=== PATIENT | female | born 1980 | race Caucasian/White ===

== ENCOUNTER → 2019-10-11 13:08 | Outpatient (BNVA) | payer MEDICAID, SELFPAY | PROVIDERS: Family Provider Nurse Practitioner Family; PCP Nurse Practitioner Family; Visit Provider Anesthesiology | DX: G89.29 Other chronic pain (principal); M54.9 Dorsalgia, unspecified; M79.604 Pain in right leg; M79.605 Pain in left leg; M79.671 Pain in right foot; M79.672 Pain in left foot; Z79.891 Long term (current) use of opiate analgesic | CPT/HCPCS: 99214 ==

== ENCOUNTER → 2019-12-06 13:15 | Outpatient (BNVA) | payer MEDICAID, SELFPAY | PROVIDERS: Family Provider Nurse Practitioner Family; PCP Nurse Practitioner Family; Visit Provider Anesthesiology | DX: G89.29 Other chronic pain (principal); M54.9 Dorsalgia, unspecified; M79.651 Pain in right thigh; M79.652 Pain in left thigh; M79.604 Pain in right leg; M79.605 Pain in left leg; M79.671 Pain in right foot; M79.672 Pain in left foot; M25.519 Pain in unspecified shoulder; Z79.891 Long term (current) use of opiate analgesic | CPT/HCPCS: 99214 ==

== ENCOUNTER → 2019-12-31 12:30 | Outpatient (BNVA) | payer MEDICAID, SELFPAY | PROVIDERS: Family Provider Nurse Practitioner Family; PCP Nurse Practitioner Family; Visit Provider Anesthesiology Pain Medicine | DX: M79.604 Pain in right leg (principal); M79.605 Pain in left leg; G90.529 Complex regional pain syndrome I of unspecified lower limb; M54.9 Dorsalgia, unspecified | CPT/HCPCS: 64520; J1100; J2001; J3490 ==

== ENCOUNTER → 2020-02-12 10:00 | Outpatient (BNVA) | payer MEDICAID, SELFPAY | PROVIDERS: Family Provider Nurse Practitioner Family; PCP Nurse Practitioner Family; Visit Provider Family Medicine | DX: N18.9 Chronic kidney disease, unspecified (principal) | CPT/HCPCS: 80069; 82044; 82310; 83970; 85025 ==

== ENCOUNTER → 2020-03-04 12:19 | Outpatient (BNVA) | payer MEDICAID, SELFPAY | PROVIDERS: Family Provider Nurse Practitioner Family; PCP Nurse Practitioner Family; Visit Provider Urology | DX: N20.2 Calculus of kidney with calculus of ureter (principal) | CPT/HCPCS: 80048; 84100; 84550 ==

== ENCOUNTER → 2020-03-19 12:58 | Outpatient (BNVA) | payer MEDICAID, SELFPAY | PROVIDERS: Family Provider Nurse Practitioner Family; PCP Nurse Practitioner Family; Visit Provider Anesthesiology | DX: G89.29 Other chronic pain (principal); M79.671 Pain in right foot; M79.672 Pain in left foot; M54.9 Dorsalgia, unspecified; Z79.891 Long term (current) use of opiate analgesic | CPT/HCPCS: 99214 ==

== ENCOUNTER → 2020-03-23 09:00 | Outpatient (BNVA) | payer MEDICAID, SELFPAY | PROVIDERS: Family Provider Nurse Practitioner Family; PCP Nurse Practitioner Family; Visit Provider Nurse Practitioner Family | DX: Z30.9 Encounter for contraceptive management, unspecified (principal); E03.9 Hypothyroidism, unspecified; Z30.42 Encounter for surveillance of injectable contraceptive; Z68.35 Body mass index [BMI] 35.0-35.9, adult | CPT/HCPCS: 84439; 84443 ==

== ENCOUNTER 2020-04-01 10:54 | Outpatient (CLI) | payer MEDICAID, SELFPAY ==
--- NOTE | 2020-04-01 10:15 | XRR_ITS ---
PROCEDURE INFORMATION: Exam: XR Abdomen, 1 View Exam date and time: 04/01/2020 10:57 AM Age: 39 years old Clinical indication: Condition or disease; Kidney or ureter condition; Calculus (stone) in kidney; Prior surgery; Surgery type: Kidney stone removal TECHNIQUE: Imaging protocol: XR of the abdomen. Views: Frontal supine view of the abdomen. 1 View. COMPARISON: No relevant prior studies available. FINDINGS: Gastrointestinal tract: There is increased retained stool throughout the colon, compatible with constipation. Kidneys are obscured by overlying stool and bowel gas. Organs: No calculi project over the expected location of either kidney or along the course of either ureter. Bones/joints: Unremarkable. XR/XR KUB [id number] IMPRESSION: No radiopaque calculi identified.
== END 2020-04-01 10:55 | disposition home or self-care (01) ==
PROVIDERS: Family Provider Nurse Practitioner Family; PCP Nurse Practitioner Family; Visit Provider Urology
DX: N20.2 Calculus of kidney with calculus of ureter (principal)
CPT/HCPCS: 74018; 81001

== ENCOUNTER → 2020-05-21 13:43 | Outpatient (BNVA) | payer MEDICAID, SELFPAY | PROVIDERS: Family Provider Nurse Practitioner Family; PCP Nurse Practitioner Family; Visit Provider Anesthesiology | DX: G89.29 Other chronic pain (principal); M79.671 Pain in right foot; M79.672 Pain in left foot; M54.9 Dorsalgia, unspecified; Z79.891 Long term (current) use of opiate analgesic | CPT/HCPCS: 99214 ==

== ENCOUNTER → 2020-06-24 10:43 | Outpatient (BNVA) | payer MEDICAID, SELFPAY | PROVIDERS: Family Provider Nurse Practitioner Family; PCP Nurse Practitioner Family; Visit Provider Nurse Practitioner Family | DX: R35.0 Frequency of micturition (principal) | CPT/HCPCS: 81000 ==

== ENCOUNTER 2020-06-26 15:27 | Observation (INO) | payer MEDICAID, SELFPAY ==
[2020-06-26] VITALS (12 sets, daily range): BP systolic 104–136; BP diastolic 64–102; PULSE 66–111; RESP 12–22; TEMP 37; O2SAT 72–100; BMI 48.9
--- NOTE | 2020-06-26 16:13 | XRR_ITS ---
PROCEDURE INFORMATION: Exam: XR Chest, 1 View Exam date and time: 06/26/2020 5:24 PM Age: 39 years old Clinical indication: Other: Altered mental status; Patient HX: AMS TECHNIQUE: Imaging protocol: XR of the chest Views: 1 view. COMPARISON: CR Chest 1 [place] [id number] 12/22/2018 9:03 PM FINDINGS: Lungs: Poor inspiratory effort. No visible active interstitial or alveolar airspace disease. Pleural space: Unremarkable. No pleural effusion. No pneumothorax. Heart/Mediastinum: Unremarkable. No cardiomegaly. Bones/joints: Unremarkable. Other findings: Heavy body habitus. XR/XR chest 1V portable [id number] IMPRESSION: Poor inspiratory effort.
--- NOTE | 2020-06-26 16:13 | ECG_ITS ---
[facility] Test Date: 2020-06-26 Pat Name: Silvia Resendez Department: Room: Gender: Female [employer] Agent: : 1980 Requested By: Layla Abarca Order Number: [id number] Josie MD: Lucía Abernathy M.D. Measurements Intervals Center Line Rate: 66 P: 13 MT: 146 QRS: 1 QRSD: 87 T: 17 QT: 398 QTc: 419 Interpretive Statements SINUS RHYTHM POSSIBLE ANTERIOR MYOCARDIAL INFARCTION , PROBABLY OLD [30 ms Q WAVE IN V3/V4, OR R < 0.2 mV IN V4] Compared to ECG 09/26/2017 15:25:15 Myocardial infarct finding now present Prolonged QT interval no longer present Electronically Signed On 06-27-2020 8:15:43 CDT by Lucía Abernathy M.D. [id number]
--- NOTE | 2020-06-26 16:13 | CTR_ITS ---
PROCEDURE INFORMATION: Exam: CT Head Without Contrast Exam date and time: 06/26/2020 5:01 PM Age: 39 years old Clinical indication: Altered mental status/memory loss; Confusion or disorientation; Patient HX: AMS, high bs accidental overmedication TECHNIQUE: Imaging protocol: Computed tomography of the head without contrast. Radiation optimization: All CT scans at this facility use at least one of these dose optimization techniques: automated exposure control; mA and/or kV adjustment per patient size (includes targeted exams where dose is matched to clinical indication); or iterative reconstruction. COMPARISON: No relevant prior studies available. RADIATION DOSE METRICS: Total DLP (mGy-cm): 762.65 FINDINGS: Brain: Normal. No hemorrhage. Unremarkable white matter. No mass effect. Ventricles: No ventriculomegaly. Bones/joints: Unremarkable. No acute fracture. Paranasal sinuses: Visualized sinuses are unremarkable. No fluid levels. Mastoid air cells: Visualized mastoid air cells are well aerated. Soft tissues: Unremarkable. CT/CT head wo con* [id number] IMPRESSION: No acute intracranial abnormality. Radiation Dose CTDIVOL = (mGy): DLP = 762.65 (mGy-cm)
--- NOTE | 2020-06-26 16:15 | ED_ITS ---
HPI - General Adult General: Chief complaint: Recheck/Abnormal Lab/Rx Stated complaint: HIGH BLOOD SUGAR Time Seen by Provider: 06/26/20 16:12 Source: patient Mode of arrival: ambulatory Limitations: no limitations History of Present Illness: HPI narrative: Silvia is a 39-year-old female who comes in with high blood sugar. Patient is somnolent but states that she accidentally took her Ambien along with her methadone this morning. Her methadone was a scheduled but her Ambien of course is not. Patient has a GCS of 14 she will easily awakes from sleeping to voice. Patient has chronic pain in her lower extremities from previous vascular injury. Patient was seen at her primary care yesterday for control and was noted to have high blood sugar. She went back today and because of the somnolence and that again elevated blood sugar she was sent into the ER for evaluation. Patient states that she otherwise feels well and denies any other problems. Associated symptoms: Deny chest pain, confusion, diaphoresis, dyspnea, headache(s), malaise, nausea, rash, palpitations, syncope or vomiting Review of Systems Const: Denies: fever(s), chills, body aches, fatigue, malaise or diaphoresis Eyes: Denies: change in vision, blurry vision, photophobia, eye discomfort, eye discharge, eye redness or yellow eyes ENMT: Denies: throat pain, odynophagia, hoarseness, swelling of lips/tongue, ear or mastoid pain, ear discharge, change in hearing or nasal discharge Card: Denies: chest pain, palpitations, irregular heart rhythm, edema, lightheadedness, syncope, pre-syncope, dyspnea on exertion or orthopnea Resp: Denies: dyspnea, productive cough, non-productive cough, wheezing, hemoptysis or chest congestion GI: Denies: abdominal pain, nausea, vomiting, hematemesis, coffee ground emesis, heartburn, diarrhea, constipation, GI cramping, hematochezia or melena : Denies: flank pain, dysuria, urinary frequency, urinary urgency or hematuria Musc: Denies: neck pain, back pain, extremity pain, extremity swelling, joint pain, joint swelling, joint redness, joint warmth or joint stiffness Skin/Breast: Denies: rash, pruritus, erythema, skin pain or skin tenderness Neuro: Denies: headache(s), numbness in extremities, weakness in extremities, sensory changes, lack of coordination, difficulty walking, dizziness, vertigo, confusion, Slurred speech present or seizure-like activity Tray/Lymph: Denies: easy bruising, easy bleeding, petechiae, purpura or enlarged lymph nodes All/Imm: Denies: urticaria, throat swelling, tongue swelling, facial swelling or acute wheezing PFSH ED PFSH: Medical History Acc cut/hem w/ scope exam right knee in 2005 Anxiety disorder Back pain with history of spinal surgery injections 04/2018 Chronic pain Depression Drug-seeking behavior Encounter for long-term use of opiate analgesic Foot pain, bilateral Headache Hypocitraturia Hypothyroidism Leg pain, bilateral Muscle spasm Opioid dependence Overdose of analgesic Polysubstance abuse Shoulder pain Urolithiasis Surgical History History of elbow surgery right History of oral surgery 2016: October 2016 S/p bilateral carpal tunnel release right 2000 S/P foot surgery Bilateral: right great toe, part of second toe on the left foot removed. Status post laser lithotripsy of ureteral calculus Family History Father Cancer Hypertension Diabetes Social History Smoking and tobacco status: never smoked Second hand smoke exposure: No Alcohol intake: never Adopted: No Caregiver/support person: No Lives independently: Yes History of recent travel: No Physical Exam Const: COMMON NORMALS: no acute distress, patient oriented x3, no limitations and alert GENERAL APPEARANCE: cooperative HENMT: COMMON NORMALS: normocephalic, atraumatic, external ears normal, EAC's normal and Normal external nose present HEAD & SCALP: normal to inspection, normocephalic and atraumatic FACE & SINUS: normal facial exam and face symmetric NOSE: Normal external nose present and Normal nares present EXTERNAL EAR: Yes external ears normal EXTERNAL AUDITORY CANAL: EAC's normal MOUTH: Normal oral and palatal mucosa present, lip normal and tongue normal Eye: COMMON NORMALS: Equal, round and reactive pupils present and conjunctivae normal GENERAL EYE: appearance normal, both eyes and all related structures ALIGNMENT: Yes alignment normal PERIORBITAL: periorbital findings normal EYELID: eyelids normal CONJUNCTIVA: Yes conjunctivae normal SCLERA: sclerae normal PUPIL: Yes Equal, round and reactive pupils present Neck/C-Spine: COMMON NORMALS: full ROM, no lymphadenopathy, supple, no meningeal signs and no JVD GENERAL: Yes normal visual inspection and Yes trachea midline Chest: COMMONS NORMALS: normal inspection of the chest and normal palpation of entire chest wall Resp: COMMON NORMALS: normal respiratory effort, No retractions, No use of accessory muscles and clear to auscultation bilaterally EFFORT & INSPECTION: Yes able to speak in complete sentences and Yes symmetric chest movement AUSCULTATION: clear to auscultation bilaterally, no crackles, no rales, no rhonchi and no wheezes Cardio: COMMON NORMALS: no JVD, regular rate, regular rhythm, S1 normal heart sound present and S2 normal heart sound present RATE: regular rate RHYTHM: regular rhythm HEART SOUNDS: S1 normal heart sound present, S2 normal heart sound present, no click, no gallops, no murmurs and no rubs GI: COMMON NORMALS: Soft to palpation and No hepatosplenomegaly present PALPATION: Yes Soft to palpation, No Tenderness to palpation present (GI), No Guarding due to palpation present (GI), No Rigid due to palpation, Yes No hepatosplenomegaly present, No Hernia present, No Palpable mass present and No Pulsatile mass present : COMMON NORMALS: Yes no CVA tenderness BLADDER/KIDNEY EXAM: Yes no CVA tenderness EXTERNAL FEMALE EXAM: No Hernia present Back/Pelvis: COMMON NORMALS: no CVA tenderness, thoracic and lumbar spine normal to inspection, no thoracic nor lumbar tenderness and thoraco-lumbar ROM normal Extremity: COMMON NORMALS: normal to inspection, full ROM, capillary refill normal, no joint enlargement, no clubbing, cyanosis or edema and no calf tenderness Neuro: COMMON NORMALS: patient oriented x3, CN's II-XII intact bilaterally, moves all extremities, no focal motor deficits and no sensory deficits noted SENSORIUM/ORIENTATION: Yes alert MENINGEAL SIGNS: Yes no meningeal signs SPEECH: speech normal Psych: COMMON NORMALS: mental status grossly normal, Normal thought process present, cooperative, normal affect, speech normal and activity/motor behavior normal SPEECH: Yes normal speech THOUGHT PROCESS: Normal thought process present Skin: COMMON NORMALS: no rashes or lesions noted, turgor normal, no jaundice, no petechiae and no mottling GENERAL SKIN EXAM: no rashes or lesions noted and turgor normal Course ED course: 1733 -patient was given Narcan due to increased somnolence with great improvement after Narcan was administered. Vital Signs: Vital signs: Vital Signs Temperature 98.6 F 06/26/20 16:22 Pulse Rate 81 06/26/20 19:46 Respiratory Rate 15 06/26/20 19:46 Blood Pressure 136/84 06/26/20 19:46 Pulse Oximetry 95 06/26/20 19:46 MDM - General Adult MDM Narrative: Medical decision making narrative: Ms. Resendez is a 39-year-old female who comes in from her clinic with an altered mental status and high blood sugar. The diagnosis of diabetes is new. I see no evidence of diabetic ketoacidosis. Patient claims that she accidentally took her Ambien this morning. And one-point she necessitated a dose of Narcan because nursing was concerned that she was oversedated. She did have significant improvement in her symptoms but it did wear off but the patient has maintained a good GCS of 15 since that time. She is on multiple medications that will sedate her and I believe she is at risk should she go home as multiple medications are very long- acting. The patient at this time is stable but because of this I believe she needs to be monitored. The case was reviewed with Dr. Vasquez he is agreeable to admission for further evaluation and care. Lab Data: Labs: Lab Results 06/26/20 06/26/20 06/26/20 Range/Units 15:43 16:45 16:45 WBC (4.0-10.0) 10^3/ uL RBC (4.1-5.3) 10^6/u L Hgb (11.5-15.3) g/dL Hct (37.0-47.0) % MCV (81-99) fL MCH (28.0-34.0) pg MCHC (30.0-36.0) g/dL RDW (12.1-15.1) % Plt Count (130-400) 10^3/c mm MPV (7.4-10.4) fL Neut % (Auto) % Lymph % (Auto) % Wirt % (Auto) % Eos % (Auto) % Baso % (Auto) % Neut # (Auto) (1.8-7.7) 10^3/u L Lymph # (Auto) (0.8-4.8) 10^3/u L Wirt # (Auto) (0.2-0.9) 10^3/u L Eos # (Auto) (0.0-0.8) 10^3/u L Baso # (Auto) (0.0-0.1) 10^3/u L Nucleated RBC % (a uto) % Nucleated RBCs # /100WBC Specimen Type Sample Site ABG pH (7.35-7.45) ABG pCO2 (35-45) mmHg ABG pO2 (80.0-100.0) mmH g ABG HCO3 (22-26) mmol/L ABG Base Excess (-2.0-2.0) mmol/ L Jaden Test Hematocrit (37-47) % O2 Delivery Device FiO2 % [employer] ID Sodium (136-145) mmol/L Potassium (3.5-5.1) mmol/L Chloride (98-107) mmol/L Carbon Dioxide (22-29) mmol/L Anion Gap (5-19) BUN (6-20) mg/dL Creatinine (0.5-0.9) mg/dL GFR Calculation (90-130) mL/min Glucose (65-115) mg/dL POC Glucose (70-110) mg/dL Calculated Osmolal ity (285-295) mOsm/k g Lactic Acid (0.5-2.2) mmol/L Calcium (8.5-10.5) mg/dL Magnesium (1.7-2.3) mg/dL Total Bilirubin (0.15-1.2) mg/dL AST (0-32) U/L ALT (0-33) U/L Alkaline Phosphata se (35-105) IU/L Ammonia (11-51) umol/L Creatine Kinase (26-192) U/L Troponin T Baselin e (0-10) ng/L Troponin T 120 Min [place] (0-10) ng/L Delta Troponin T (0-10) ABS# NT-Pro-B Natriuret Pep (0-125) pg/mL Total Protein (6.6-8.7) g/dL Albumin (3.5-5.2) g/dL Globulin (1.3-4.6) g/dL Urine Color Straw (Yellow) Urine Appearance Clear (CLEAR) Urine pH 7 (5-7) Ur Specific Gravit y 1.005 (1.005-1.030) Urine Protein Neg (Negative) Urine Glucose (UA) 4+ H (Normal) Urine Ketones Negative (Negative) Urine Blood Neg (Negative) Urine Nitrate Negative (Negative) Urine Bilirubin Neg (Negative) Urine Urobilinogen Norm (Negative) mg/dL Ur Leukocyte Mary Ellen ase Negative (Negative) Urine RBC 5-10 H (0-2) /hpf Urine WBC None (0-5) /hpf Ur Squamous Epith Cells 0-4 H (0-5) /hpf Amorphous Sediment Not Reportable Urine Bacteria Trace (NONE) /hpf Urine Opiates Scre en Positive H (Negative) ng/mL Acetaminophen < 5.0 L (10-30) ug/mL Ur Barbiturates Sc reen Negative (Negative) ng/mL Ur Phencyclidine S crn Negative (Negative) ng/mL Ur Amphetamines Sc reen Negative (Negative) ng/mL U Benzodiazepines Scrn Negative (Negative) ng/mL Urine Cocaine Scre en Negative (Negative) ng/mL U Marijuana (THC) Screen Negative (Negative) ng/mL Ethyl Alcohol (0-10) mg/dL Serum Ketones (Negative) 06/26/20 06/26/20 06/26/20 Range/Units 16:46 17:23 17:23 WBC 7.7 (4.0-10.0) 10^3/ uL RBC 4.52 (4.1-5.3) 10^6/u L Hgb 11.8 (11.5-15.3) g/dL Hct 37.2 (37.0-47.0) % MCV 82.3 (81-99) fL MCH 26.1 L (28.0-34.0) pg MCHC 31.7 (30.0-36.0) g/dL RDW 14.3 (12.1-15.1) % Plt Count 221 (130-400) 10^3/c mm MPV 9.7 (7.4-10.4) fL Neut % (Auto) 52.3 % Lymph % (Auto) 40.9 % Wirt % (Auto) 4.2 % Eos % (Auto) 1.8 % Baso % (Auto) 0.5 % Neut # (Auto) 4.00 (1.8-7.7) 10^3/u L Lymph # (Auto) 3.1 (0.8-4.8) 10^3/u L Wirt # (Auto) 0.3 (0.2-0.9) 10^3/u L Eos # (Auto) 0.1 (0.0-0.8) 10^3/u L Baso # (Auto) 0.0 (0.0-0.1) 10^3/u L Nucleated RBC % (a uto) 0 % Nucleated RBCs # 0.0 /100WBC Specimen Type Arterial Sample Site Radial, left ABG pH 7.33 L (7.35-7.45) ABG pCO2 43.2 (35-45) mmHg ABG pO2 64.3 L (80.0-100.0) mmH g ABG HCO3 23.0 (22-26) mmol/L ABG Base Excess -2.9 L (-2.0-2.0) mmol/ L Jaden Test Pos Hematocrit 39.5 (37-47) % O2 Delivery Device None FiO2 21.0 % [employer] ID Ed Sodium 131 L (136-145) mmol/L Potassium 4.1 (3.5-5.1) mmol/L Chloride 98 (98-107) mmol/L Carbon Dioxide 21 L (22-29) mmol/L Anion Gap 16.1 (5-19) BUN 9 (6-20) mg/dL Creatinine 1.3 H (0.5-0.9) mg/dL GFR Calculation 45.8 L (90-130) mL/min Glucose 466 H (65-115) mg/dL POC Glucose (70-110) mg/dL Calculated Osmolal ity 291 (285-295) mOsm/k g Lactic Acid (0.5-2.2) mmol/L Calcium 9.2 (8.5-10.5) mg/dL Magnesium 1.9 (1.7-2.3) mg/dL Total Bilirubin 0.4 (0.15-1.2) mg/dL AST 15 (0-32) U/L ALT 22 (0-33) U/L Alkaline Phosphata se 152 H (35-105) IU/L Ammonia (11-51) umol/L Creatine Kinase 284 H (26-192) U/L Troponin T Baselin e (0-10) ng/L Troponin T 120 Min [place]sparks (0-10) ng/L Delta Troponin T (0-10) ABS# NT-Pro-B Natriuret Pep (0-125) pg/mL Total Protein 6.9 (6.6-8.7) g/dL Albumin 4.0 (3.5-5.2) g/dL Globulin 2.9 (1.3-4.6) g/dL Urine Color (Yellow) Urine Appearance (CLEAR) Urine pH (5-7) Ur Specific Gravit y (1.005-1.030) Urine Protein (Negative) Urine Glucose (UA) (Normal) Urine Ketones (Negative) Urine Blood (Negative) Urine Nitrate (Negative) Urine Bilirubin (Negative) Urine Urobilinogen (Negative) mg/dL Ur Leukocyte Mary Ellen ase (Negative) Urine RBC (0-2) /hpf Urine WBC (0-5) /hpf Ur Squamous Epith Cells (0-5) /hpf Amorphous Sediment Urine Bacteria (NONE) /hpf Urine Opiates Scre en (Negative) ng/mL Acetaminophen (10-30) ug/mL Ur Barbiturates Sc reen (Negative) ng/mL Ur Phencyclidine S crn (Negative) ng/mL Ur Amphetamines Sc reen (Negative) ng/mL U Benzodiazepines Scrn (Negative) ng/mL Urine Cocaine Scre en (Negative) ng/mL U Marijuana (THC) Screen (Negative) ng/mL Ethyl Alcohol < 10 (0-10) mg/dL Serum Ketones Negative (Negative) 06/26/20 06/26/20 06/26/20 Range/Units 17:23 17:23 17:23 WBC (4.0-10.0) 10^3/ uL RBC (4.1-5.3) 10^6/u L Hgb (11.5-15.3) g/dL Hct (37.0-47.0) % MCV (81-99) fL MCH (28.0-34.0) pg MCHC (30.0-36.0) g/dL RDW (12.1-15.1) % Plt Count (130-400) 10^3/c mm MPV (7.4-10.4) fL Neut % (Auto) % Lymph % (Auto) % Wirt % (Auto) % Eos % (Auto) % Baso % (Auto) % Neut # (Auto) (1.8-7.7) 10^3/u L Lymph # (Auto) (0.8-4.8) 10^3/u L Wirt # (Auto) (0.2-0.9) 10^3/u L Eos # (Auto) (0.0-0.8) 10^3/u L Baso # (Auto) (0.0-0.1) 10^3/u L Nucleated RBC % (a uto) % Nucleated RBCs # /100WBC Specimen Type Sample Site ABG pH (7.35-7.45) ABG pCO2 (35-45) mmHg ABG pO2 (80.0-100.0) mmH g ABG HCO3 (22-26) mmol/L ABG Base Excess (-2.0-2.0) mmol/ L Jaden Test Hematocrit (37-47) % O2 Delivery Device FiO2 % [employer] ID Sodium (136-145) mmol/L Potassium (3.5-5.1) mmol/L Chloride (98-107) mmol/L Carbon Dioxide (22-29) mmol/L Anion Gap (5-19) BUN (6-20) mg/dL Creatinine (0.5-0.9) mg/dL GFR Calculation (90-130) mL/min Glucose (65-115) mg/dL POC Glucose (70-110) mg/dL Calculated Osmolal ity (285-295) mOsm/k g Lactic Acid 1.6 (0.5-2.2) mmol/L Calcium (8.5-10.5) mg/dL Magnesium (1.7-2.3) mg/dL Total Bilirubin (0.15-1.2) mg/dL AST (0-32) U/L ALT (0-33) U/L Alkaline Phosphata se (35-105) IU/L Ammonia 26 (11-51) umol/L Creatine Kinase (26-192) U/L Troponin T Baselin e 15 H (0-10) ng/L Troponin T 120 Min [place] (0-10) ng/L Delta Troponin T (0-10) ABS# NT-Pro-B Natriuret Pep (0-125) pg/mL Total Protein (6.6-8.7) g/dL Albumin (3.5-5.2) g/dL Globulin (1.3-4.6) g/dL Urine Color (Yellow) Urine Appearance (CLEAR) Urine pH (5-7) Ur Specific Gravit y (1.005-1.030) Urine Protein (Negative) Urine Glucose (UA) (Normal) Urine Ketones (Negative) Urine Blood (Negative) Urine Nitrate (Negative) Urine Bilirubin (Negative) Urine Urobilinogen (Negative) mg/dL Ur Leukocyte Mary Ellen ase (Negative) Urine RBC (0-2) /hpf Urine WBC (0-5) /hpf Ur Squamous Epith Cells (0-5) /hpf Amorphous Sediment Urine Bacteria (NONE) /hpf Urine Opiates Scre en (Negative) ng/mL Acetaminophen (10-30) ug/mL Ur Barbiturates Sc reen (Negative) ng/mL Ur Phencyclidine S crn (Negative) ng/mL Ur Amphetamines Sc reen (Negative) ng/mL U Benzodiazepines Scrn (Negative) ng/mL Urine Cocaine Scre en (Negative) ng/mL U Marijuana (THC) Screen (Negative) ng/mL Ethyl Alcohol (0-10) mg/dL Serum Ketones (Negative) 06/26/20 06/26/20 06/26/20 Range/Units 17:53 18:59 19:20 WBC (4.0-10.0) 10^3/ uL RBC (4.1-5.3) 10^6/u L Hgb (11.5-15.3) g/dL Hct (37.0-47.0) % MCV (81-99) fL MCH (28.0-34.0) pg MCHC (30.0-36.0) g/dL RDW (12.1-15.1) % Plt Count (130-400) 10^3/c mm MPV (7.4-10.4) fL Neut % (Auto) % Lymph % (Auto) % Wirt % (Auto) % Eos % (Auto) % Baso % (Auto) % Neut # (Auto) (1.8-7.7) 10^3/u L Lymph # (Auto) (0.8-4.8) 10^3/u L Wirt # (Auto) (0.2-0.9) 10^3/u L Eos # (Auto) (0.0-0.8) 10^3/u L Baso # (Auto) (0.0-0.1) 10^3/u L Nucleated RBC % (a uto) % Nucleated RBCs # /100WBC Specimen Type Sample Site ABG pH (7.35-7.45) ABG pCO2 (35-45) mmHg ABG pO2 (80.0-100.0) mmH g ABG HCO3 (22-26) mmol/L ABG Base Excess (-2.0-2.0) mmol/ L Jaden Test Hematocrit (37-47) % O2 Delivery Device FiO2 % [employer] ID Sodium (136-145) mmol/L Potassium (3.5-5.1) mmol/L Chloride (98-107) mmol/L Carbon Dioxide (22-29) mmol/L Anion Gap (5-19) BUN (6-20) mg/dL Creatinine (0.5-0.9) mg/dL GFR Calculation (90-130) mL/min Glucose (65-115) mg/dL POC Glucose 379 (70-110) mg/dL Calculated Osmolal ity (285-295) mOsm/k g Lactic Acid (0.5-2.2) mmol/L Calcium (8.5-10.5) mg/dL Magnesium (1.7-2.3) mg/dL Total Bilirubin (0.15-1.2) mg/dL AST (0-32) U/L ALT (0-33) U/L Alkaline Phosphata se (35-105) IU/L Ammonia (11-51) umol/L Creatine Kinase (26-192) U/L Troponin T Baselin e (0-10) ng/L Troponin T 120 Min [place] 16.23 H (0-10) ng/L Delta Troponin T 1.23 (0-10) ABS# NT-Pro-B Natriuret Pep 175 H (0-125) pg/mL Total Protein (6.6-8.7) g/dL Albumin (3.5-5.2) g/dL Globulin (1.3-4.6) g/dL Urine Color (Yellow) Urine Appearance (CLEAR) Urine pH (5-7) Ur Specific Gravit y (1.005-1.030) Urine Protein (Negative) Urine Glucose (UA) (Normal) Urine Ketones (Negative) Urine Blood (Negative) Urine Nitrate (Negative) Urine Bilirubin (Negative) Urine Urobilinogen (Negative) mg/dL Ur Leukocyte Mary Ellen ase (Negative) Urine RBC (0-2) /hpf Urine WBC (0-5) /hpf Ur Squamous Epith Cells (0-5) /hpf Amorphous Sediment Urine Bacteria (NONE) /hpf Urine Opiates Scre en (Negative) ng/mL Acetaminophen (10-30) ug/mL Ur Barbiturates Sc reen (Negative) ng/mL Ur Phencyclidine S crn (Negative) ng/mL Ur Amphetamines Sc reen (Negative) ng/mL U Benzodiazepines Scrn (Negative) ng/mL Urine Cocaine Scre en (Negative) ng/mL U Marijuana (THC) Screen (Negative) ng/mL Ethyl Alcohol (0-10) mg/dL Serum Ketones (Negative) Imaging Data^: CXR: Attestation: I personally reviewed and interpreted this imaging study as follows: My impression: Cardiomegaly with possible mild pulmonary vascular congestion EKG Data^: EKG 1: Attestation: I personally reviewed and interpreted this EKG as follows: EKG interpretation date: 06/26/20 EKG interpretation time: 16:35 Interpretation: Normal sinus rhythm at 66 beats a minute, no blocks, normal intervals, no acute ST-T wave changes. Computer generated interpretation: Chest X-Ray 06/26/20 16:13 IMPRESSION: Poor inspiratory effort. Head CT 06/26/20 16:13 IMPRESSION: No acute intracranial abnormality. Radiation Dose CTDIVOL = (mGy): DLP = 762.65 (mGy-cm) EKG 2: Attestation: I personally reviewed and interpreted this EKG as follows: EKG interpretation date: 06/26/20 EKG interpretation time: 18:32 Interpretation: Normal sinus rhythm at 80 beats a minute, frequent PACs, nonspecific ST-T wave changes. Computer generated interpretation: Chest X-Ray 06/26/20 16:13 IMPRESSION: Poor inspiratory effort. Head CT 06/26/20 16:13 IMPRESSION: No acute intracranial abnormality. Radiation Dose CTDIVOL = (mGy): DLP = 762.65 (mGy-cm) Discharge Plan Discharge Patient Disposition: Placed in Observation Clinical Impression: Altered mental status Condition: Stable Prescriptions: No Action thiamine HCl (vitamin B1) [Vitamin B-1] 250 mg tablet 250 mg PO DAILY RF: 0 pyridoxine (vitamin B6) 250 mg tablet 250 mg PO DAILY RF: 0 Symbicort 160-4.5 mcg/actuation HFA aerosol inhaler 2 puff INHALATION BID RF: 0 gabapentin 300 mg capsule 300 mg PO BID RF: 0 docusate sodium [Colace] 100 mg capsule 100 mg PO DAILY RF: 0 hydrocodone-acetaminophen 10-325 mg tablet 1 tab PO BID PRN (Reason: pain) 30 Days Qty: 60 RF: 0 baclofen 20 mg tablet 20 mg PO TID PRN (Reason: spasms) 30 Days Qty: 90 RF: 1 methadone 10 mg tablet 10 mg PO Q8H 30 Days Qty: 90 RF: 0 zolpidem [Ambien CR] 12.5 mg tablet,ext release multiphase 12.5 mg PO ONCE PRN (Reason: insomnia) 30 Days Qty: 30 RF: 1 Prilosec OTC 20 mg tablet,delayed release (DR/EC) 20 mg PO DAILY Qty: 30 RF: 6 cetirizine [Zyrtec] 10 mg tablet 10 mg PO ONCE Qty: 30 RF: 12 medroxyprogesterone [Depo-Provera] 150 mg/mL suspension 150 mg IM ONCE Qty: 1 RF: 4 SODIUM BICARBONATE tablet See Rx Instructions .ROUTE .COMPLEX RF: 0 ergocalciferol (vitamin D2) 1,250 mcg (50,000 unit) capsule 1,250 mcg PO .week Qty: 4 RF: 11 potassium citrate 15 mEq tablet extended release 15 meq PO BID Qty: 60 RF: 12 zolpidem [Ambien] 10 mg tablet 10 mg PO .BEDTIME 30 Days Qty: 30 RF: 1 tamsulosin 0.4 mg capsule 0.4 mg PO DAILY RF: 0 folic acid 1 mg tablet 1 mg PO DAILY RF: 0 levothyroxine 50 mcg capsule 50 mcg PO DAILY RF: 0 Referrals: Ami Kumar REHABILITATION CASEWORKER [Primary Care Provider] - Coding Level of Care Code ED Medical Office Assistant for Chg Fwd Exam Comprehensive
[2020-06-26 16:56] LABS: ABG PCO2 43.2 mmHg (35-45); ABG PH Result 7.33 (7.35-7.45); Arterial Blood Gas Hematocrit 39.5 % (37-47); Base Excess ABG -2.9 mmol/L (-2.0-2.0); Blood Gas Allen Test Pos; Blood Gas Operator Identificat ED; Blood Gas Sample Site Radial, left; Blood Gas Sample Type Arterial; PO2 ABG 64.3 mmHg (80.0-100.0)
[2020-06-26 17:26] LABS: Basophils % 0.5 %; Eosinophils # 0.1 10^3/uL (0.0-0.8); Eosinophils % 1.8 %; Hematocrit 37.2 % (37.0-47.0); Hemoglobin 11.8 g/dL (11.5-15.3); Lymphocytes # 3.1 10^3/uL (0.8-4.8); Lymphocytes % 40.9 %; Mean Corpuscular HGB Conc 31.7 g/dL (30.0-36.0); Mean Corpuscular Hemoglobin 26.1 pg (28.0-34.0); Mean Corpuscular Volume 82.3 fL (81-99); Mean Platelet Volume 9.7 fL (7.4-10.4); Monocytes # 0.3 10^3/uL (0.2-0.9); Monocytes % 4.2 %; Neutrophils % 52.3 %; Nucleated Red Blood Cells % 0 %; Platelet Count 221 10^3/cmm (130-400); Red Blood Count 4.52 10^6/uL (4.1-5.3); Red Cell Distribution Width 14.3 % (12.1-15.1); White Blood Count 7.7 10^3/uL (4.0-10.0)
[2020-06-26] MEDS: sodium chloride 0.9% 1,000 ML 999 ML IV ×2 (17:27→18:49)
[2020-06-26] MEDS: naloxone 0.4 mg/ml SDV IVP (17:27)
[2020-06-26 17:47] LABS: Ammonia 26 umol/L (11-51)
--- NOTE | 2020-06-26 17:47 | PC.NURSE ---
PATIENT LETHARGIC AND HARD TO AROUSE PRIOR TO NARCAN ADMINISTRATION, PATIENT ONLY ALERT TO PAINFUL STIMULI, PATIENT IS NOW PANICKY AND VERY JITTERY. PATIENT APPEARS ALL OVER THE PLACE AND IS HARD TO CALM DOWN. DR SERRANO NOTIFIED AND ORDERS RECEIVED TO MONITOR.
[2020-06-26 17:56] LABS: Bilirubin Urine Neg (Negative); Blood Urine Neg (Negative); Glucose Urine UA 4+ (Normal); Ketones Urine Negative (Negative); Leukocyte Esterase Urine Negative (Negative); Nitrate Urine Negative (Negative); Protein Urine Neg (Negative); Specific Gravity, Urine 1.005 (1.005-1.030); Urine Appearance Clear (CLEAR); Urine Color Straw (Yellow); Urobilinogen Urine Norm (Negative); pH Urine 7 (5-7)
[2020-06-26 17:56] LABS: Lactic Sepsis W/Reflex 1.6 mmol/L (0.5-2.2)
[2020-06-26 17:57] LABS: Troponin(5th) Baseline 15 ng/L (0-10)
[2020-06-26 18:01] LABS: Add Urine Culture? No; Bacteria Urine TRACE /hpf; Squamous Epithelial Cell Urine 0-4 /hpf (0-5)
[2020-06-26 18:11] LABS: Ketone (Acetest) Serum Negative (Negative)
--- NOTE | 2020-06-26 18:13 | ECG_ITS ---
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 Measurements Intervals [place] Rate: 80 P: [place]: -1 QRS: 169 QRSD: 93 T: 177 QT: 369 QTc: 426 Interpretive Statements Sinus rhythm NONSPECIFIC T-WAVE ABNORMALITY Compared to ECG 06/26/2020 16:35:50 T-wave abnormality now present Electronically Signed On 06-27-2020 18:09:09 CDT by Dennis Barreto M.D. [email or web address] county [email or web address] health system [facility].[employer]/store/[id number]
[2020-06-26 18:43] LABS: NT Pro B Type Natriuretic Pept 175 pg/mL (0-125)
[2020-06-26 18:57] LABS: Acetaminophen < 5.0 ug/mL (10-30)
--- NOTE | 2020-06-26 19:01 | PC.NURSE ---
Blood glucose is 379
[2020-06-26 19:04] LABS: Alanine Aminotransferase 22 U/L (0-33); Alkaline Phosphatase 152 IU/L (35-105); Anion Gap 16.1 (5-19); Aspartate Amino Transferase 15 U/L (0-32); Blood Urea Nitrogen 9 mg/dL (6-20); Calcium 9.2 mg/dL (8.5-10.5); Carbon Dioxide 21 mmol/L (22-29); Chloride 98 mmol/L (98-107); Creatine Phosphokinase 284 U/L (26-192); Globulin 2.9 g/dL (1.3-4.6); Glomerular Filtration Rate 45.8 mL/min (90-130); Glucose 466 mg/dL (65-115); Magnesium 1.9 mg/dL (1.7-2.3); Osmolality Calculated 291 mOsm/kg (285-295); Potassium 4.1 mmol/L (3.5-5.1); Sodium 131 mmol/L (136-145); Total Bilirubin 0.4 mg/dL (0.15-1.2); Total Protein 6.9 g/dL (6.6-8.7)
[2020-06-26 19:04] LABS: Glucose Point of Care 379 mg/dL (70-110)
[2020-06-26 19:05] LABS: Alcohol Level < 10 mg/dL (0-10)
--- NOTE | 2020-06-26 19:13 | ECG_ITS ---
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 Measurements Intervals [place] Rate: 108 P: 51 ND: 131 QRS: 13 QRSD: 79 T: 33 QT: 316 QTc: 424 Interpretive Statements SINUS TACHYCARDIA Compared to ECG 06/26/2020 18:32:02 Atrial fibrillation no longer present T-wave abnormality no longer present Electronically Signed On 06-27-2020 8:12:03 CDT by Lucía Abernathy M.D. [id number]
[2020-06-26 19:35] LABS: Amphetamines Screen Urine Negative (Negative); Barbiturates Screen Urine Negative (Negative); Benzodiazepines Screen Urine Negative (Negative); Cocaine Screen Urine Negative (Negative); Opiate Screen Urine Positive (Negative); PCP Screen Urine Negative (Negative); THC Screen Urine Negative (Negative)
--- NOTE | 2020-06-26 20:03 | P.HP_ITS ---
Providers/Chief Complaint Primary Care Provider: Ami Kumar NP Chief Complaint: HIGH BLOOD SUGAR History of Present Illness Silvia Resendez is a 39 year old female who carries history of opiate dependence, on chronic methadone therapy along opioids was sent in from her clinic because of drowsiness. Patient is on methadone 10 mg 3 times a day along hydrocodone, she is following up with pain management clinic for her opioids, she is denying taking more than her usual dosages, she is stating that today her Ambien was on her medication desk when she took her morning tablets and did not realize it soon enough. She went to her PCP appointment today, at the clinic she became really drowsy hence was transferred to the ER for further evaluation, blood glucose was checked at the clinic which was high. Patient is denying previous history of diabetes, she is denying suicidal thoughts ideation or severe depression. She does not smoke or drink alcohol. She is attributing her drowsiness to accidental dose of Ambien. Diagnostics in the ER revealed mild respiratory acidosis, chronic kidney disease creatinine 1.3, U tox positive for opioids, she was hypoventilating, very drowsy but arousable to verbal commands, GCS 14-15 Decision was made to observe her overnight in the hospital She received 1 dose of Narcan in the ER EKG reviewed, CT head reviewed, Review of Systems Const: Reports: body aches and fatigue; Denies: fever(s) or chills Eyes: Denies: change in vision ENMT: Denies: throat pain Card: Denies: chest pain Resp: Denies: dyspnea GI: Denies: abdominal pain, nausea, vomiting, diarrhea or constipation : Denies: flank pain Musc: Denies: neck pain Skin/Breast: Denies: rash Neuro: Denies: headache(s) Psych: Reports: anxiety Endo: Denies: polyuria Tray/Lymph: Denies: easy bruising All/Imm: Denies: urticaria Medications/Allergies Home Medications Medication Instructions Recorded Confirmed Last Taken Type budesonide-formoterol HFA 160 2 puff INHALATION BID 10/04/19 06/26/20 06/25/20 History mcg-4.5 mcg/actuation aerosol inhaler pyridoxine (vitamin B6) 250 mg 250 mg PO DAILY 10/04/19 06/26/20 06/26/20 History tablet thiamine HCl (vitamin B1) 250 mg 250 mg PO DAILY tab 12/27/19 09/18/20 09/18/20 History tablet cetirizine 10 mg tablet 10 mg PO ONCE #30 tab 12/19/19 06/26/20 06/26/20 Rx medroxyprogesterone 150 mg/mL 150 mg IM ONCE #1 ml 12/19/19 06/26/20 06/23/20 Rx intramuscular suspension docusate sodium 100 mg capsule 100 mg PO DAILY cap 02/12/20 06/26/20 06/26/20 History gabapentin 300 mg capsule 300 mg PO BID 02/12/20 06/26/20 06/26/20 History ergocalciferol (vitamin D2) 1,250 1,250 mcg PO .week #4 cap 02/27/20 06/26/20 06/26/20 Rx mcg (50,000 unit) capsule SODIUM BICARBONATE See Rx Instructions .ROUTE .COMPLEX 03/19/20 06/26/20 06/26/20 History baclofen 20 mg tablet 20 mg PO TID PRN 30 Days #90 tab 05/21/20 06/26/20 0 Rx hydrocodone 10 mg-acetaminophen 1 tab PO BID PRN 30 Days #60 tab 05/21/20 06/26/20 06/25/20 Rx 325 mg tablet methadone 10 mg tablet 10 mg PO Q8H 30 Days #90 tab 05/21/20 06/26/20 06/26/20 Rx zolpidem 12.5 mg tablet,extended 12.5 mg PO ONCE PRN 30 Days #30 tab 05/21/20 06/26/20 Unknown Rx release,multiphase potassium citrate 15 mEq (1,620 15 meq PO BID #60 tab 05/25/20 06/26/20 06/26/20 Rx mg) tablet,extended release zolpidem 10 mg tablet 10 mg PO .BEDTIME 30 Days #30 tab 06/12/20 06/26/20 06/25/20 Rx omeprazole magnesium 20 mg 20 mg PO DAILY #30 tab 06/24/20 06/26/20 06/26/20 Rx tablet,delayed release folic acid 1 mg PO DAILY 06/26/20 06/26/20 06/26/20 History levothyroxine 50 mcg PO DAILY 06/26/20 06/26/20 06/26/20 History tamsulosin 0.4 mg PO DAILY 06/26/20 06/26/20 06/26/20 History Allergies Allergy/AdvReac Type Severity Reaction Status Date / Time sulfamethoxazole Allergy Unknown history of Verified 06/26/20 17:02 [From Bactrim] kidney failure trimethoprim [From Bactrim] Allergy Unknown history of Verified 06/26/20 17:02 kidney failure metoclopramide [From Reglan] AdvReac Unknown edema Verified 06/26/20 17:02 Opioids - Morphine Analogues AdvReac Unknown swelling Verified 06/26/20 17:02 PFSH Acute PFSH: Medical History Acc cut/hem w/ scope exam right knee in 2005 Anxiety disorder Back pain with history of spinal surgery injections 04/2018 Chronic pain Depression Drug-seeking behavior Encounter for long-term use of opiate analgesic Foot pain, bilateral Headache Hypocitraturia Hypothyroidism Leg pain, bilateral Muscle spasm Opioid dependence Overdose of analgesic Polysubstance abuse Shoulder pain Urolithiasis Surgical History History of elbow surgery right History of oral surgery 2016: October 2016 S/p bilateral carpal tunnel release right 2001 S/P foot surgery Bilateral: right great toe, part of second toe on the left foot removed. Status post laser lithotripsy of ureteral calculus Family History Father Cancer Hypertension Diabetes Social History Smoking and tobacco status: never smoked Second hand smoke exposure: No Alcohol intake: never Adopted: No Caregiver/support person: No Lives independently: Yes History of recent travel: No Vitals/I&O/Wt Last Vital Signs Temp 98.6 F 06/26/20 16:22 Pulse 81 06/26/20 19:46 Resp 15 06/26/20 19:46 BP 136/84 06/26/20 19:46 Pulse Ox 95 06/26/20 19:46 06/26/20 06/26/20 06/26/20 06:59 14:59 22:59 Intake Total 1000 / 1000 Balance 1000 / 1000 Weight last 48 hrs Weight 92.079 kg Physical Exam Narrative: EXAM NARRATIVE: Patient was in deep sleep with her tongue protruding when I entered the room, however she woke up fairly quickly on verbal command, her GCS was 15 No neurological deficit noted No active respiratory distress No sinus bradycardia S1, S2 Abdomen soft distended bowel sound present No neurological deficit EOMI No lower extremity edema gangrene ulcer Right great toe amputation Left great toe ingrown nail without active sign of cellulitis Lungs are clear to auscultate She was saturating well on room air Data : 06/26/20 17:23 06/26/20 17:23 A&P Assessment and plan (1) Dhruv Opioid-induced Sedation Scale (POSS) score 4, somnolent, minimal or no response to verbal or physical stimulation: Status: Acute (2) Hyperglycemia: Status: Acute (3) Foot pain, bilateral: Status: Chronic (4) Opioid dependence: Status: Chronic Additional A&P Information Altered mental status/somnolent behavior Secondary to polypharmacy, she is on multiple narcotics including opioids along with methadone and psychotropic medications I would only continue methadone for now Patient is requesting that Ambien should not be stopped as she is suffering from severe insomnia Improved after 1 dose of Narcan Mild respiratory acidosis No active respiratory distress She saturating well on room air GCS 15 No need of ICU at the moment, monitor her on medical floor We will request another blood gas in the morning She is fairly well compensated I do think we need BiPAP overnight Hyperglycemia New onset, rule out diabetes, will request A1c level She has morbid obesity, psychotropic medications can also contribute towards hypoglycemia We will follow-up Sliding scale mild Consistent carb diet Full code DVT prophylaxis Lovenox Attestations Medical Necessity Statement*: Overnight monitoring for somnolent behavior secondary to polypharmacy, anticipating discharge in less than 48 hours Time Spent in Patient Care: (>than 50% of time spent in counselling and/or direct pt care on unit) . 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
[2020-06-26 20:10] LABS: Troponin 5 2HR 16.23 ng/L (0-10); Troponin 5 2HR Delta 1.23 ABS# (0-10)
--- NOTE | 2020-06-26 22:13 | ECG_ITS ---
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 Measurements Intervals [place] Rate: 84 P: 18 HI: 142 QRS: 9 QRSD: 80 T: -3 QT: 329 QTc: 390 Interpretive Statements SINUS RHYTHM WITH SINUS ARRHYTHMIA NONSPECIFIC T-WAVE ABNORMALITY Compared to ECG 06/26/2020 19:23:09 T-wave abnormality now present Sinus tachycardia no longer present Electronically Signed On 06-27-2020 8:42:46 CDT by Lucía Abernathy M.D. [id number]
[2020-06-26 22:54] LABS: Estmated Average Glucose 263; Hemoglobin A1C 10.8 % (4.0-6.0)
--- NOTE | 2020-06-26 23:45 | PC.NURSE ---
Admission Pt. admission completed. Pt. states that she does not have any home medications with her at this time, patient does have purse next to her in bed. Pt. states no cigarettes or lighters in purse.
[2020-06-26] MEDS: heparin 5,000 unit/mL INJ 1 mL 5000 UNIT SUBCUT (23:58)
[2020-06-26] MEDS: sodium chloride 0.9% 1,000 ML 100 ML IV (23:58)
[2020-06-27 00:03] VITALS: RESP 8
[2020-06-27 00:18] LABS: Glucose Point of Care 283 mg/dL (70-110)
[2020-06-27 01:00] VITALS: BP 124/81; PULSE 81; RESP 20; TEMP 37.1; O2SAT 98
[2020-06-27 04:00] VITALS: BP 119/76; PULSE 75; RESP 8; TEMP 37.3; O2SAT 94
[2020-06-27 04:20] LABS: ABG PH Result 7.37 (7.35-7.45); Arterial Blood Gas Hematocrit 32.9 % (37-47); Base Excess ABG -1.9 mmol/L (-2.0-2.0); Blood Gas Sample Site Brachial, right; Blood Gas Sample Type Arterial; HCO3 ABG 23.4 mmol/L (22-26); Oxygen Device ROOM AIR; PO2 ABG 70.5 mmHg (80.0-100.0)
[2020-06-27 06:11] LABS: Basophils % 0.3 %; Eosinophils # 0.1 10^3/uL (0.0-0.8); Eosinophils % 1.5 %; Hematocrit 32.8 % (37.0-47.0); Hemoglobin 10.2 g/dL (11.5-15.3); Lymphocytes # 3.5 10^3/uL (0.8-4.8); Lymphocytes % 47.6 %; Mean Corpuscular HGB Conc 31.1 g/dL (30.0-36.0); Mean Corpuscular Hemoglobin 26.4 pg (28.0-34.0); Mean Platelet Volume 10.3 fL (7.4-10.4); Monocytes # 0.5 10^3/uL (0.2-0.9); Monocytes % 6.7 %; Neutrophils # 3.17 10^3/uL (1.8-7.7); Neutrophils % 43.6 %; Nucleated Red Blood Cells % 0 %; Platelet Count 216 10^3/cmm (130-400); Red Blood Count 3.86 10^6/uL (4.1-5.3); Red Cell Distribution Width 14.6 % (12.1-15.1); White Blood Count 7.3 10^3/uL (4.0-10.0)
[2020-06-27] MEDS: heparin 5,000 unit/mL INJ 1 mL 5000 UNIT SUBCUT (06:29)
[2020-06-27 06:36] LABS: Anion Gap 10.9 (5-19); Blood Urea Nitrogen 8 mg/dL (6-20); Calcium 8.8 mg/dL (8.5-10.5); Carbon Dioxide 21 mmol/L (22-29); Chloride 111 mmol/L (98-107); Glomerular Filtration Rate 50.3 mL/min (90-130); Glucose 209 mg/dL (65-115); Osmolality Calculated 292 mOsm/kg (285-295); Potassium 3.9 mmol/L (3.5-5.1); Sodium 139 mmol/L (136-145)
[2020-06-27 06:36] LABS: Glucose Point of Care 205 mg/dL (70-110)
[2020-06-27 06:41] LABS: Glucose Point of Care 201 mg/dL (70-110)
[2020-06-27 07:17] VITALS: BP 118/78; PULSE 76; RESP 18; TEMP 36.7; O2SAT 96
[2020-06-27] MEDS: levothyroxine 50 mcg Tablet PO (07:36)
[2020-06-27] MEDS: folic acid 1 mg Tablet PO (07:36)
[2020-06-27] MEDS: thiamine 100 mg Tablet PO (07:36)
[2020-06-27] MEDS: pantoprazole DR 40 mg Tablet PO (07:36)
[2020-06-27] MEDS: sodium chloride 0.9% 1,000 ML 100 ML IV (07:36)
[2020-06-27] MEDS: methadone 10 mg Tablet PO (07:36)
--- NOTE | 2020-06-27 09:06 | PM.DCS ---
Discharge Providers Date of Admission: 06/26/20 21:56 Date of Discharge: June 27, 2020 Attending Provider at Admission: Neno Vasquez MD Attending Provider at Discharge: Remy Cruz MD Primary Care Provider: Ami Kumar NP Diagnoses at Discharge Discharge Diagnosis (1) [place] Opioid-induced Sedation Scale (POSS) score 4, somnolent, minimal or no response to verbal or physical stimulation: Status: Acute Problem details: Resolved (2) Hyperglycemia: Status: Acute Problem details: A1c elevated. Has diabetes mellitus. (3) Foot pain, bilateral: Status: Chronic (4) Opioid dependence: Status: Chronic Reason for Visit Reason for Visit: HIGH BLOOD SUGAR Hospital Course Hospital Course: Silvia is a 39-year-old female who presented to the emergency department with lethargy. She reports she accidentally took an Ambien in the morning. She was on multiple other sedating substances. She was admitted to the hospital and observed. Her sugar was also noted to be markedly elevated on admission. Hemoglobin A1c was checked and 10.8 consistent with uncontrolled diabetes. She was given long-acting insulin in the hospital as well as short acting insulin and the following day blood sugar was 209. She was alert, wishing to go home. We discussed reducing her muscle relaxant usage. She is going to talk with pain clinic. She will not take her Ambien during the day. I am going to initiate Lantus only 10 units at night. She will also initiate metformin twice daily 500 mg. She will follow-up with her primary care provider in 3 to 4 days with a list of her blood sugars for further adjustment and addition of diabetic medication. Nursing is to educate her on a diabetic diet prior to discharge. Physical Exam Narrative: EXAM NARRATIVE: General exam no apparent distress, alert and oriented. Cardiovascular regular rate and rhythm without murmur Lungs clear Abdomen is soft obese nontender Extremities no cyanosis clubbing or edema, several toe amputations, well-healed are noted. Discharge Data Data Completed and Pending: Completed Studies During Hospitalization Category Date Time Status CT head wo con* [id number] Stat Cat Scan 06/26/20 16:13 Completed XR chest 1V julian ble [id number] Stat Exams 06/26/20 16:13 Completed Labs from last 24 hours 06/27/20 06/27/20 06/27/20 06:31 06:22 05:46 WBC RBC Hgb Hct MCV MCH MCHC RDW Plt Count MPV Neut % (Auto) Lymph % (Auto) [place] % (Auto) Eos % (Auto) Baso % (Auto) Neut # (Auto) Lymph # (Auto) [place] # (Auto) Eos # (Auto) Baso # (Auto) Nucleated RBC % (a uto) Nucleated RBCs # Specimen Type Sample Site ABG pH ABG pCO2 ABG pO2 ABG HCO3 ABG Base Excess Jaden Test Hematocrit O2 Delivery Device FiO2 Tobacco Flavorer ID Sodium 139 Potassium 3.9 Chloride 111 H Carbon Dioxide 21 L Anion Gap 10.9 BUN 8 Creatinine 1.2 H GFR Calculation 50.3 L Glucose 209 H POC Glucose 205 201 Estimat Average Gl ucose Hemoglobin A1c Calculated Osmolal ity 292 Lactic Acid Calcium 8.8 Magnesium Total Bilirubin AST ALT Alkaline Phosphata se Ammonia Creatine Kinase Troponin T Baselin e Troponin T 120 [address] [place] Troponin T NT-Pro-B Natriuret Pep Total Protein Albumin Globulin Urine Color Urine Appearance Urine pH Ur Specific Gravit y Urine Protein Urine Glucose (UA) Urine Ketones Urine Blood Urine Nitrate Urine Bilirubin Urine Urobilinogen Ur Leukocyte [place] ase Urine RBC Urine WBC Ur Squamous Epith Cells Amorphous Sediment Urine Bacteria Urine Opiates Scre en Acetaminophen Ur Barbiturates Sc reen Ur Phencyclidine S crn Ur Amphetamines Sc reen U Benzodiazepines Scrn Urine Cocaine Scre en U Marijuana (THC) Screen Ethyl Alcohol Serum Ketones 06/27/20 06/27/20 06/26/20 05:46 04:06 23:57 WBC 7.3 RBC 3.86 L Hgb 10.2 L Hct 32.8 L MCV 85.0 MCH 26.4 L MCHC 31.1 RDW 14.6 Plt Count 216 MPV 10.3 Neut % (Auto) 43.6 Lymph % (Auto) 47.6 [place] % (Auto) 6.7 Eos % (Auto) 1.5 Baso % (Auto) 0.3 Neut # (Auto) 3.17 Lymph # (Auto) 3.5 [place] # (Auto) 0.5 Eos # (Auto) 0.1 Baso # (Auto) 0.0 Nucleated RBC % (a uto) 0 Nucleated RBCs # 0.0 Specimen Type Arterial Sample Site Brachial, right ABG pH 7.37 ABG pCO2 41.0 ABG pO2 70.5 L ABG HCO3 23.4 ABG Base Excess -1.9 Jaden Test N/a Hematocrit 32.9 L O2 Delivery Device Room air FiO2 21.0 Tobacco Flavorer ID vossa Sodium Potassium Chloride Carbon Dioxide Anion Gap BUN Creatinine GFR Calculation Glucose POC Glucose 283 Estimat Average Gl ucose Hemoglobin A1c Calculated Osmolal ity Lactic Acid Calcium Magnesium Total Bilirubin AST ALT Alkaline Phosphata se Ammonia Creatine Kinase Troponin T Baselin e Troponin T 120 Min [place] Troponin T NT-Pro-B Natriuret Pep Total Protein Albumin Globulin Urine Color Urine Appearance Urine pH Ur Specific Gravit y Urine Protein Urine Glucose (UA) Urine Ketones Urine Blood Urine Nitrate Urine Bilirubin Urine Urobilinogen Ur Leukocyte [place] ase Urine RBC Urine WBC Ur Squamous Epith Cells Amorphous Sediment Urine Bacteria Urine Opiates Scre en Acetaminophen Ur Barbiturates Sc reen Ur Phencyclidine S crn Ur Amphetamines Sc reen U Benzodiazepines Scrn Urine Cocaine Scre en U Marijuana (THC) Screen Ethyl Alcohol Serum Ketones 06/26/20 06/26/20 06/26/20 19:20 18:59 17:53 WBC RBC Hgb Hct MCV MCH MCHC RDW Plt Count MPV Neut % (Auto) Lymph % (Auto) [place] % (Auto) Eos % (Auto) Baso % (Auto) Neut # (Auto) Lymph # (Auto) [place] # (Auto) Eos # (Auto) Baso # (Auto) Nucleated RBC % (a uto) Nucleated RBCs # Specimen Type Sample Site ABG pH ABG pCO2 ABG pO2 ABG HCO3 ABG Base Excess Jaden Test Hematocrit O2 Delivery Device FiO2 Tobacco Flavorer ID Sodium Potassium Chloride Carbon Dioxide Anion Gap BUN Creatinine GFR Calculation Glucose POC Glucose 379 Estimat Average Gl ucose Hemoglobin A1c Calculated Osmolal ity Lactic Acid Calcium Magnesium Total Bilirubin AST ALT Alkaline Phosphata se Ammonia Creatine Kinase Troponin T Baselin e Troponin T 120 [address] [place] 16.23 H Delta Troponin T 1.23 NT-Pro-B Natriuret Pep 175 H Total Protein Albumin Globulin Urine Color Urine Appearance Urine pH Ur Specific Gravit y Urine Protein Urine Glucose (UA) Urine Ketones Urine Blood Urine Nitrate Urine Bilirubin Urine Urobilinogen Ur Leukocyte [place] ase Urine RBC Urine WBC Ur Squamous Epith Cells Amorphous Sediment Urine Bacteria Urine Opiates Scre en Acetaminophen Ur Barbiturates Sc reen Ur Phencyclidine S crn Ur Amphetamines Sc reen U Benzodiazepines Scrn Urine Cocaine Scre en U Marijuana (THC) Screen Ethyl Alcohol Serum Ketones 06/26/20 06/26/20 06/26/20 17:23 17:23 17:23 WBC RBC Hgb Hct MCV MCH MCHC RDW Plt Count MPV Neut % (Auto) Lymph % (Auto) [place] % (Auto) Eos % (Auto) Baso % (Auto) Neut # (Auto) Lymph # (Auto) [place] # (Auto) Eos # (Auto) Baso # (Auto) Nucleated RBC % (a uto) Nucleated RBCs # Specimen Type Sample Site ABG pH ABG pCO2 ABG pO2 ABG HCO3 ABG Base Excess Jaden Test Hematocrit O2 Delivery Device FiO2 Tobacco Flavorer ID Sodium Potassium Chloride Carbon Dioxide Anion Gap BUN Creatinine GFR Calculation Glucose POC Glucose Estimat Average Gl ucose 263 Hemoglobin A1c 10.8 H Calculated Osmolal ity Lactic Acid Calcium Magnesium Total Bilirubin AST ALT Alkaline Phosphata se Ammonia 26 Creatine Kinase Troponin T Baselin e 15 H Troponin T [address] [place] Troponin T NT-Pro-B Natriuret Pep Total Protein Albumin Globulin Urine Color Urine Appearance Urine pH Ur Specific Gravit y Urine Protein Urine Glucose (UA) Urine Ketones Urine Blood Urine Nitrate Urine Bilirubin Urine Urobilinogen Ur Leukocyte [place] ase Urine RBC Urine WBC Ur Squamous Epith Cells Amorphous Sediment Urine Bacteria Urine Opiates Scre en Acetaminophen Ur Barbiturates Sc reen Ur Phencyclidine S crn Ur Amphetamines Sc reen U Benzodiazepines Scrn Urine Cocaine Scre en U Marijuana (THC) Screen Ethyl Alcohol Serum Ketones 06/26/20 06/26/20 06/26/20 17:23 17:23 17:23 WBC 7.7 RBC 4.52 Hgb 11.8 Hct 37.2 MCV 82.3 MCH 26.1 L MCHC 31.7 RDW 14.3 Plt Count 221 MPV 9.7 Neut % (Auto) 52.3 Lymph % (Auto) 40.9 [place] % (Auto) 4.2 Eos % (Auto) 1.8 Baso % (Auto) 0.5 Neut # (Auto) 4.00 Lymph # (Auto) 3.1 [place] # (Auto) 0.3 Eos # (Auto) 0.1 Baso # (Auto) 0.0 Nucleated RBC % (a uto) 0 Nucleated RBCs # 0.0 Specimen Type Sample Site ABG pH ABG pCO2 ABG pO2 ABG HCO3 ABG Base Excess Jaden Test Hematocrit O2 Delivery Device FiO2 Tobacco Flavorer ID Sodium 131 L Potassium 4.1 Chloride 98 Carbon Dioxide 21 L Anion Gap 16.1 BUN 9 Creatinine 1.3 H GFR Calculation 45.8 L Glucose 466 H POC Glucose Estimat Average Gl ucose Hemoglobin A1c Calculated Osmolal ity 291 Lactic Acid 1.6 Calcium 9.2 Magnesium 1.9 Total Bilirubin 0.4 AST 15 ALT 22 Alkaline Phosphata se 152 H Ammonia Creatine Kinase 284 H Troponin T Baselin e Troponin T [address] [place] Troponin T NT-Pro-B Natriuret Pep Total Protein 6.9 Albumin 4.0 Globulin 2.9 Urine Color Urine Appearance Urine pH Ur Specific Gravit y Urine Protein Urine Glucose (UA) Urine Ketones Urine Blood Urine Nitrate Urine Bilirubin Urine Urobilinogen Ur Leukocyte [place] ase Urine RBC Urine WBC Ur Squamous Epith Cells Amorphous Sediment Urine Bacteria Urine Opiates Scre en Acetaminophen Ur Barbiturates Sc reen Ur Phencyclidine S crn Ur Amphetamines Sc reen U Benzodiazepines Scrn Urine Cocaine Scre en U Marijuana (THC) Screen Ethyl Alcohol < 10 Serum Ketones Negative 06/26/20 06/26/20 06/26/20 16:46 16:45 16:45 WBC RBC Hgb Hct MCV MCH MCHC RDW Plt Count MPV Neut % (Auto) Lymph % (Auto) [place] % (Auto) Eos % (Auto) Baso % (Auto) Neut # (Auto) Lymph # (Auto) [place] # (Auto) Eos # (Auto) Baso # (Auto) Nucleated RBC % (a uto) Nucleated RBCs # Specimen Type Arterial Sample Site Radial, left ABG pH 7.33 L ABG pCO2 43.2 ABG pO2 64.3 L ABG HCO3 23.0 ABG Base Excess -2.9 L Jaden Test Pos Hematocrit 39.5 O2 Delivery Device None FiO2 21.0 Tobacco Flavorer ID Ed Sodium Potassium Chloride Carbon Dioxide Anion Gap BUN Creatinine GFR Calculation Glucose POC Glucose Estimat Average Gl ucose Hemoglobin A1c Calculated Osmolal ity Lactic Acid Calcium Magnesium Total Bilirubin AST ALT Alkaline Phosphata se Ammonia Creatine Kinase Troponin T Baselin e Troponin T [address] [place] Troponin T NT-Pro-B Natriuret Pep Total Protein Albumin Globulin Urine Color Straw Urine Appearance Clear Urine pH 7 Ur Specific Gravit y 1.005 Urine Protein Neg Urine Glucose (UA) 4+ H Urine Ketones Negative Urine Blood Neg Urine Nitrate Negative Urine Bilirubin Neg Urine Urobilinogen Norm Ur Leukocyte [place] ase Negative Urine RBC 5-10 H Urine WBC None Ur Squamous Epith Cells 0-4 H Amorphous Sediment Not Reportable Urine Bacteria Trace Urine Opiates Scre en Positive H Acetaminophen Ur Barbiturates Sc reen Negative Ur Phencyclidine S crn Negative Ur Amphetamines Sc reen Negative U Benzodiazepines Scrn Negative Urine Cocaine Scre en Negative U Marijuana (THC) Screen Negative Ethyl Alcohol Serum Ketones 06/26/20 15:43 WBC RBC Hgb Hct MCV MCH MCHC RDW Plt Count MPV Neut % (Auto) Lymph % (Auto) [place] % (Auto) Eos % (Auto) Baso % (Auto) Neut # (Auto) Lymph # (Auto) [place] # (Auto) Eos # (Auto) Baso # (Auto) Nucleated RBC % (a uto) Nucleated RBCs # Specimen Type Sample Site ABG pH ABG pCO2 ABG pO2 ABG HCO3 ABG Base Excess Jaden Test Hematocrit O2 Delivery Device FiO2 Tobacco Flavorer ID Sodium Potassium Chloride Carbon Dioxide Anion Gap BUN Creatinine GFR Calculation Glucose POC Glucose Estimat Average Gl ucose Hemoglobin A1c Calculated Osmolal ity Lactic Acid Calcium Magnesium Total Bilirubin AST ALT Alkaline Phosphata se Ammonia Creatine Kinase Troponin T Baselin e Troponin T [address] [place] Troponin T NT-Pro-B Natriuret Pep Total Protein Albumin Globulin Urine Color Urine Appearance Urine pH Ur Specific Gravit y Urine Protein Urine Glucose (UA) Urine Ketones Urine Blood Urine Nitrate Urine Bilirubin Urine Urobilinogen Ur Leukocyte [place] ase Urine RBC Urine WBC Ur Squamous Epith Cells Amorphous Sediment Urine Bacteria Urine Opiates Scre en Acetaminophen < 5.0 L Ur Barbiturates Sc reen Ur Phencyclidine S crn Ur Amphetamines Sc reen U Benzodiazepines Scrn Urine Cocaine Scre en U Marijuana (THC) Screen Ethyl Alcohol Serum Ketones Vitals: Last Vital Signs Temp 98.1 F 06/27/20 07:17 Pulse 76 06/27/20 07:17 Resp 18 06/27/20 07:17 BP 118/78 06/27/20 07:17 Pulse Ox 96 06/27/20 07:17 Discharge Plan Discharge Patient Disposition: Home Condition: Stable Prescriptions: New (DME) Blood Glucose Monitoring Kit See Rx Instructions .ROUTE .MEDSUPPLY Qty: 1 RF: 0 (DME) Blood Glucose Test Strip See Rx Instructions .ROUTE .MEDSUPPLY Qty: 10 RF: 0 Lantus Solostar U-100 Insulin 100 unit/mL (3 mL) insulin pen 10 unit SUBCUT DAILY Qty: 15 RF: 0 metformin 500 mg tablet 500 mg PO BID Qty: 60 RF: 0 Continued thiamine HCl (vitamin B1) [Vitamin B-1] 250 mg tablet 250 mg PO DAILY RF: 0 pyridoxine (vitamin B6) 250 mg tablet 250 mg PO DAILY RF: 0 Symbicort 160-4.5 mcg/actuation HFA aerosol inhaler 2 puff INHALATION BID RF: 0 gabapentin 300 mg capsule 300 mg PO BID RF: 0 docusate sodium [Colace] 100 mg capsule 100 mg PO DAILY RF: 0 hydrocodone-acetaminophen 10-325 mg tablet 1 tab PO BID PRN (Reason: pain) 30 Days Qty: 60 RF: 0 baclofen 20 mg tablet 20 mg PO TID PRN (Reason: spasms) 30 Days Qty: 90 RF: 1 methadone 10 mg tablet 10 mg PO Q8H 30 Days Qty: 90 RF: 0 zolpidem [Ambien CR] 12.5 mg tablet,ext release multiphase 12.5 mg PO ONCE PRN (Reason: insomnia) 30 Days Qty: 30 RF: 1 Prilosec OTC 20 mg tablet,delayed release (DR/EC) 20 mg PO DAILY Qty: 30 RF: 6 cetirizine [Zyrtec] 10 mg tablet 10 mg PO ONCE Qty: 30 RF: 12 medroxyprogesterone [Depo-Provera] 150 mg/mL suspension 150 mg IM ONCE Qty: 1 RF: 4 SODIUM BICARBONATE tablet See Rx Instructions .ROUTE .COMPLEX RF: 0 ergocalciferol (vitamin D2) 1,250 mcg (50,000 unit) capsule 1,250 mcg PO .week Qty: 4 RF: 11 potassium citrate 15 mEq tablet extended release 15 meq PO BID Qty: 60 RF: 12 zolpidem [Ambien] 10 mg tablet 10 mg PO .BEDTIME 30 Days Qty: 30 RF: 1 tamsulosin 0.4 mg capsule 0.4 mg PO DAILY RF: 0 folic acid 1 mg tablet 1 mg PO DAILY RF: 0 levothyroxine 50 mcg capsule 50 mcg PO DAILY RF: 0 Discharge Orders: Discharge Order (Routine); Ordered 06/27/20 Ordered By: Remy Cruz Referrals: Ami Kumar NP [Primary Care Provider] - 4-7 days (Check blood sugars twice a day, morning before breakfast and night and bring them to your primary care provider.) Discharge Diet: Diabetic Discharge Activity: Increase activity as tolerated Activity Restrictions/Additional Instructions: Try to reduce usage of muscle relaxer. Talk with pain clinic about reducing medication. Check your blood sugar twice a day, report to your primary care provider. Please give diabetic diet information prior to discharge. Discharge Attestations Time Spent in Discharge Care*: greater than 30 min Quality Metrics Clinical Quality Measures During this hospital stay, did patient experience: None Coding Level of Care Code Acute Director Medical for Chg Fwd Diagnoses Dhruv Opioid-induced Sedation Scale (POSS) score 4, somnolent, minimal or no response to verbal or physical stimulation Hyperglycemia R73.9 Foot pain, bilateral M79.671; M79.672 Opioid dependence F11.20
[2020-06-27 11:22] VITALS: BP 118/78; PULSE 76; RESP 18; TEMP 36.7; O2SAT 96
== END 2020-06-27 11:23 | disposition home or self-care (01) ==
LOC: ER 20:48 → MEDSURG 22:49
PROVIDERS: Emergency Medicine; Admitting Provider Internal Medicine; PCP Nurse Practitioner Family; Visit Provider Internal Medicine
DX: E11.65 Type 2 diabetes mellitus with hyperglycemia (principal); M79.671 Pain in right foot; M79.672 Pain in left foot; F11.20 Opioid dependence, uncomplicated; E03.9 Hypothyroidism, unspecified; R40.2412 Glasgow coma scale score 13-15, at arrival to emergency department
CPT/HCPCS: 12345; 36415; 36416; 36600; 70450; 71045; 80048; 80053; 80306; 80307; 81001; 82009; 82140; 82550; 82803; 82962; 83036; 83605; 83735; 83880; 84484; 85025; 93005; 96360; 96361; 96372; 96374; 99284; 99285; G0378; J1644; J1815; J2310; J7030

== ENCOUNTER 2020-07-08 20:00 | Outpatient (CLI) | payer MEDICAID, SELFPAY | END 2020-07-08 20:01 | disposition home or self-care (01) | LOC: SLEEP 07-09 09:31 | PROVIDERS: PCP Nurse Practitioner Family; Visit Provider Nurse Practitioner Family | DX: G47.30 Sleep apnea, unspecified (principal) | CPT/HCPCS: 95811 ==

== ENCOUNTER 2020-08-03 20:00 | Outpatient (CLI) | payer MEDICAID, SELFPAY | END 2020-08-03 20:01 | disposition home or self-care (01) | LOC: SLEEP 08-04 08:39 | PROVIDERS: PCP Nurse Practitioner Family; Visit Provider Nurse Practitioner Family | DX: G47.31 Primary central sleep apnea (principal) | CPT/HCPCS: 95811 ==

== ENCOUNTER → 2020-08-05 10:42 | Outpatient (BNVA) | payer MEDICAID, SELFPAY | PROVIDERS: Family Provider Nurse Practitioner Family; PCP Nurse Practitioner Family; Visit Provider Anesthesiology | DX: G89.29 Other chronic pain (principal); M79.673 Pain in unspecified foot; M54.9 Dorsalgia, unspecified; Z79.891 Long term (current) use of opiate analgesic | CPT/HCPCS: 99213; 99214 ==

== ENCOUNTER → 2020-09-23 12:55 | Outpatient (BNVA) | payer MEDICAID, SELFPAY | PROVIDERS: Family Provider Nurse Practitioner Family; PCP Nurse Practitioner Family; Visit Provider Anesthesiology | DX: E11.9 Type 2 diabetes mellitus without complications (principal); G89.29 Other chronic pain; M54.9 Dorsalgia, unspecified; Z30.42 Encounter for surveillance of injectable contraceptive; M79.671 Pain in right foot; Z23 Encounter for immunization; M79.672 Pain in left foot; Z79.891 Long term (current) use of opiate analgesic | CPT/HCPCS: 83036; 99213; 99214 ==

== ENCOUNTER → 2020-11-10 13:00 | Outpatient (BNVA) | payer MEDICAID, SELFPAY | PROVIDERS: Family Provider Nurse Practitioner Family; PCP Nurse Practitioner Family; Visit Provider Nurse Practitioner Family | DX: Z12.4 Encounter for screening for malignant neoplasm of cervix (principal) | CPT/HCPCS: 88175 ==

== ENCOUNTER → 2020-11-27 10:47 | Outpatient (BNVA) | payer MEDICAID, SELFPAY | PROVIDERS: Family Provider Nurse Practitioner Family; PCP Nurse Practitioner Family; Visit Provider Anesthesiology | DX: G89.29 Other chronic pain (principal); M54.9 Dorsalgia, unspecified; M79.671 Pain in right foot; M79.672 Pain in left foot; M79.604 Pain in right leg; M79.605 Pain in left leg; Z79.891 Long term (current) use of opiate analgesic | CPT/HCPCS: 99213; 99214 ==

== ENCOUNTER → 2021-01-26 14:01 | Outpatient (BNVA) | payer MEDICAID, SELFPAY | PROVIDERS: Family Provider Nurse Practitioner Family; PCP Nurse Practitioner Family; Visit Provider Anesthesiology | DX: G89.29 Other chronic pain (principal); M79.671 Pain in right foot; M79.672 Pain in left foot; M79.604 Pain in right leg; M79.605 Pain in left leg; M54.9 Dorsalgia, unspecified; Z79.891 Long term (current) use of opiate analgesic | CPT/HCPCS: 99213 ==

== ENCOUNTER → 2021-03-24 10:33 | Outpatient (BNVA) | payer MEDICAID, SELFPAY | PROVIDERS: Family Provider Nurse Practitioner Family; PCP Nurse Practitioner Family | DX: N18.31 Chronic kidney disease, stage 3a (principal); E11.9 Type 2 diabetes mellitus without complications; E03.9 Hypothyroidism, unspecified; R30.0 Dysuria | CPT/HCPCS: 80069; 81000; 82043; 82310; 83036; 83970; 84439; 84443; 85025 ==

== ENCOUNTER → 2021-03-31 09:55 | Outpatient (BNVA) | payer MEDICAID, SELFPAY | PROVIDERS: Family Provider Nurse Practitioner Family; PCP Nurse Practitioner Family; Visit Provider Nurse Practitioner | DX: G89.29 Other chronic pain (principal); M54.9 Dorsalgia, unspecified; M25.519 Pain in unspecified shoulder; M79.604 Pain in right leg; M79.605 Pain in left leg; M79.671 Pain in right foot; M79.672 Pain in left foot; M62.838 Other muscle spasm; Z79.891 Long term (current) use of opiate analgesic | CPT/HCPCS: 99214 ==

== ENCOUNTER 2021-04-06 10:19 | Outpatient (CLI) | payer MEDICAID, SELFPAY ==
--- NOTE | 2021-04-06 10:15 | XRR_ITS ---
PROCEDURE INFORMATION: Exam: XR Abdomen Exam date and time: 04/06/2021 10:15 AM Age: 40 years old Clinical indication: Condition or disease; Other: Stones; Prior surgery; Surgery type: Kidney stone; Additional info: Stonesfemi 04/06/21 @ 10:15am appt to follow TECHNIQUE: Imaging protocol: XR of the abdomen. Views: Frontal supine view of the abdomen. 1 View. COMPARISON: CR XR KUB [id number] 04/01/2020 10:59 AM FINDINGS: Gastrointestinal tract: Normal. No bowel dilation. Organs: No calcifications are seen in the projection of the kidneys or ureters. Small phleboliths are present in the lower pelvis. Bones/joints: Unremarkable. XR/XR KUB [id number] IMPRESSION: 1. No urinary stones are seen. 2. No acute abnormality.
== END 2021-04-06 10:20 | disposition home or self-care (01) ==
PROVIDERS: PCP Nurse Practitioner Family; Visit Provider Urology
DX: N20.0 Calculus of kidney (principal)
CPT/HCPCS: 74018; 81003

== ENCOUNTER → 2021-04-21 13:34 | Outpatient (BNVA) | payer MEDICAID, SELFPAY | PROVIDERS: PCP Nurse Practitioner Family; Visit Provider Nurse Practitioner | DX: G89.29 Other chronic pain (principal); M54.9 Dorsalgia, unspecified; M79.671 Pain in right foot; M79.672 Pain in left foot; M79.604 Pain in right leg; M79.605 Pain in left leg; M25.519 Pain in unspecified shoulder; Z79.891 Long term (current) use of opiate analgesic | CPT/HCPCS: 99214 ==

== ENCOUNTER 2021-05-08 11:30 | Emergency (ER) | payer MEDICAID, SELFPAY ==
[2021-05-08 12:27] VITALS: BP 106/74; PULSE 128; RESP 18; TEMP 37.3; O2SAT 97; BMI 31.6
--- NOTE | 2021-05-08 12:41 | ED_ITS ---
HPI - Extremity Problem General: Chief complaint: Extremity Injury, Lower Stated complaint: R ankle and leg pain, Fall Time Seen by Provider: 05/08/21 12:34 History of Present Illness: HPI Narrative: 40-year-old female presents emergency room complaint last night slipping she twisted on her firmly brace right leg now has pain and bruising of her right leg distally with distal anterior ecchymosis approximately 5 to 6 inches proximal to the ankle. Patient states she is unable to bear weight she is able to move and feel her toes. Neurovascularly intact although she has somewhat slight decrease sensation which is chronic from peripheral neuropathy from her diabetes. She has a previously amputated right great toe. Denies any other injuries with the fall. MD Complaint: extremity pain and extremity swelling Onset (ago): hour(s) Pain Consistency: constant Location: right and lower extremity Quality: sharp Radiation: none Relieving factors: immobilization Exacerbating factors: nothing Associated symptoms: Deny chest pain, fever(s) or rash Review of Systems Const: Denies: fever(s), chills, body aches, change in appetite, fatigue or malaise ENMT: Denies: throat pain, ear or mastoid pain, nasal discharge or nasal congestion Card: Denies: chest pain, edema, dyspnea on exertion or orthopnea Resp: Denies: dyspnea, productive cough or non-productive cough GI: Denies: abdominal pain, nausea, vomiting, hematemesis, coffee ground emesis, diarrhea, constipation, bloating, hematochezia or melena : Denies: flank pain, difficulty voiding, dysuria, urinary frequency or urinary urgency Skin/Breast: Denies: rash or pruritus [facility] PFSH: Medical History Acc cut/hem w/ scope exam right knee in 2005 Anxiety disorder Back pain with history of spinal surgery injections 04/2018 Chronic pain Depression Drug-seeking behavior Encounter for long-term use of opiate analgesic Foot pain, bilateral Headache Hypocitraturia Hypothyroidism Insomnia Leg pain, bilateral Muscle spasm Opioid dependence Overdose of analgesic Polysubstance abuse S/P extracorporeal shock wave therapy Shoulder pain Urolithiasis Surgical History History of back surgery History of elbow surgery right History of oral surgery 2016: October 2016 S/p bilateral carpal tunnel release right 2000 S/P foot surgery Bilateral: right great toe, part of second toe on the left foot removed. Status post laser lithotripsy of ureteral calculus Family History Father Cancer Hypertension Diabetes Social History Second hand smoke exposure: No Alcohol intake: never Adopted: No Caregiver/support person: No Lives independently: Yes History of recent travel: No Physical Exam Const: COMMON NORMALS: no acute distress GENERAL APPEARANCE: cooperative and comfortable ORIENTATION/CONSCIOUSNESS: Yes awake, Yes oriented to person, Yes oriented to place and Yes oriented to time HENMT: COMMON NORMALS: normocephalic and atraumatic HEAD & SCALP: normocephalic and atraumatic Neck/C-Spine: COMMON NORMALS: no JVD Resp: COMMON NORMALS: normal respiratory effort, No retractions, No use of accessory muscles and clear to auscultation bilaterally AUSCULTATION: clear to auscultation bilaterally Cardio: COMMON NORMALS: no JVD, regular rate, regular rhythm and No murmurs present (Cardio) RATE: regular rate RHYTHM: regular rhythm Extremity: NARRATIVE EXTREMITY EXAM: Distal ecchymosis to anterior tibia. X- ray shows spiral distal tibia fracture the proximal fibular head fracture minimally displaced. Neuro: SENSORIUM/ORIENTATION: Yes oriented to person, Yes oriented to place and Yes oriented to time Skin: COMMON NORMALS: no rashes or lesions noted GENERAL SKIN EXAM: no rashes or lesions noted Course Vital Signs: Vital signs: Vital Signs Temperature 99.1 F 05/08/21 12:27 Pulse Rate 128 H 05/08/21 12:27 Respiratory Rate 18 05/08/21 12:27 Blood Pressure 106/74 05/08/21 12:27 Pulse Oximetry 97 05/08/21 12:27 MDM - Extremity (Nontraumatic) MDM Narrative: Medical decision making narrative: Discussed with Rishabh he will see the patient on Monday we will put her in a long-leg splint she has pain medications from the pain clinic no weightbearing and use crutches only. Discharge Plan Discharge Patient Disposition: Home Clinical Impression: Fracture tibia/fibula Condition: Stable Prescriptions: No Action thiamine HCl (vitamin B1) [Vitamin B-1] 250 mg tablet 250 mg PO DAILY RF: 0 pyridoxine (vitamin B6) 250 mg tablet 250 mg PO DAILY RF: 0 Symbicort 160-4.5 mcg/actuation HFA aerosol inhaler 2 puff INHALATION BID RF: 0 docusate sodium [Colace] 100 mg capsule 100 mg PO DAILY RF: 0 gabapentin 300 mg capsule 300 mg PO TID 30 Days Qty: 90 RF: 1 SODIUM BICARBONATE tablet See Rx Instructions .ROUTE .COMPLEX RF: 0 hydrocodone-acetaminophen 10-325 mg tablet 1 tab PO BID PRN (Reason: pain) 30 Days Qty: 60 RF: 0 folic acid 1 mg tablet See Rx Instructions .ROUTE .COMPLEX Qty: 90 RF: 3 tamsulosin 0.4 mg capsule See Rx Instructions .ROUTE .COMPLEX Qty: 90 RF: 3 levothyroxine 50 mcg tablet See Rx Instructions .ROUTE .COMPLEX Qty: 90 RF: 3 Prilosec OTC 20 mg tablet,delayed release (DR/EC) 20 mg PO DAILY Qty: 90 RF: 3 zolpidem [Ambien] 10 mg tablet 10 mg PO DAILY Qty: 30 RF: 2 baclofen 20 mg tablet 20 mg PO TID PRN (Reason: spasms) 30 Days Qty: 90 RF: 0 methadone 10 mg tablet 10 mg PO .5 times daily 30 Days Qty: 150 RF: 0 potassium citrate 15 mEq tablet extended release 15 meq PO BID Qty: 60 RF: 12 (DME) pen needle, diabetic [Microdot Insulin Pen Needle] 31 gauge x 1/4 needle See Rx Instructions .ROUTE .MEDSUPPLY Qty: 100 RF: 3 Lantus Solostar U-100 Insulin 100 unit/mL (3 mL) insulin pen 10 unit SUBCUT DAILY Qty: 15 RF: 1 cetirizine 10 mg tablet 10 mg PO DAILY Qty: 30 RF: 11 ergocalciferol (vitamin D2) [Vitamin D2] 1,250 mcg (50,000 unit) capsule See Rx Instructions .ROUTE .COMPLEX Qty: 4 RF: 3 medroxyprogesterone [Depo-Provera] 150 mg/mL suspension 150 mg IM ONCE Qty: 1 RF: 4 alcohol swabs [Alcohol Prep Pads] Pads, Medicated 2 pad topical DAILY Qty: 200 RF: 3 hydrocodone-acetaminophen 10-325 mg tablet 1 tab PO BID PRN (Reason: pain) 30 Days Qty: 60 RF: 0 metformin 1,000 mg tablet See Rx Instructions .ROUTE .COMPLEX Qty: 60 RF: 2 (DME) Blood Glucose Monitoring Kit See Rx Instructions .ROUTE .MEDSUPPLY Qty: 1 RF: 0 (DME) Blood Glucose Test Strip See Rx Instructions .ROUTE .MEDSUPPLY Qty: 10 RF: 0 Discharge Orders: Discharge ED (Routine); Ordered 05/08/21 Ordered By: Geoffrey Gutierrez Referrals: Ami Kumar, [employer]IAN [Primary Care Provider] - Discharge Diet: Usual diet Discharge Activity: Limit activity as instructed Patient Instructions: Opioid Safety Activity Restrictions/Additional Instructions: Non-weightbearing on the right leg.services account manager will make arrangements for follow-up with orthopedics. Use crutches until seen. Use previously prescribed hydrocodone for pain. Coding Level of Care Code ED Seam Stay Stitcher for Jose Fwwarren Exam Detailed
--- NOTE | 2021-05-08 13:03 | XRR_ITS ---
PROCEDURE INFORMATION: Exam: XR Right Tibia and Fibula Exam date and time: 05/08/2021 1:03 PM Age: 40 years old Clinical indication: Right lower leg pain TECHNIQUE: Imaging protocol: XR Right tibia and fibula. Views: 2 views. COMPARISON: No relevant prior studies available. FINDINGS: There is a mildly comminuted, spiral fracture involving the distal tibial diaphysis. There is lateral displacement of the dominant distal fracture fragment by approximately 1 cm. There is a comminuted, mildly displaced fracture involving the proximal fibula. Soft tissue swelling is noted involving the lower leg. Tiny posterior calcaneal spur. XR/XR tibia fibula RT 2V [id number] IMPRESSION: 1. Mildly comminuted, displaced, spiral fracture involving the distal tibial diaphysis. 2. Comminuted, mildly displaced fracture involving the proximal fibula. 3. Soft tissue swelling.
[2021-05-08] MEDS: ketorolac 60 mg/2 mL INJ IM (13:49)
[2021-05-08 14:33] VITALS: BP 105/60; RESP 16
[2021-05-08] MEDS: HYDROcodone-acetaminophen 10-325 mg Tablet 1 TAB PO (15:08)
--- NOTE | 2021-05-10 12:48 | DCPLANNER ---
platform material handler manager had message to schedule a follow up appointment for patient with ortho for a tib-fib fracture. platform material handler manager called the ortho clinic, spoke with Ingrid, gave clinic patients information. platform material handler manager was told that patients information would be printed and reviewed. Clinic will call patient with appointment information.
--- NOTE | 2021-05-12 14:37 | DCPLANNER ---
Patient had a follow up appointment scheduled with ortho, Dr. Keating -patient did attend appointment.
== END 2021-05-08 15:20 | disposition home or self-care (01) ==
PROVIDERS: Emergency Provider Family Medicine; PCP Nurse Practitioner Family
DX: S82.241A Displaced spiral fracture of shaft of right tibia, initial encounter for closed fracture (principal); S82.451A Displaced comminuted fracture of shaft of right fibula, initial encounter for closed fracture; E11.42 Type 2 diabetes mellitus with diabetic polyneuropathy; E03.9 Hypothyroidism, unspecified; Z79.4 Long term (current) use of insulin; W01.0XXA Fall on same level from slipping, tripping and stumbling without subsequent striking against object, initial encounter
CPT/HCPCS: 29505; 73590; 96372; 99283; E0114; J1885

== ENCOUNTER → 2021-05-10 13:06 | Outpatient (BNVA) | payer MEDICAID, SELFPAY | PROVIDERS: PCP Nurse Practitioner Family; Visit Provider Orthopaedic Surgery | DX: Z01.812 Encounter for preprocedural laboratory examination (principal); Z20.822 Contact with and (suspected) exposure to COVID-19 | CPT/HCPCS: 87635 ==

== ENCOUNTER 2021-05-13 11:01 | Day surgery (SDC) | payer MEDICAID, SELFPAY ==
[2021-05-12 16:09] VITALS: BMI 33.3
[2021-05-13] VITALS (12 sets, daily range): BP systolic 129–148; BP diastolic 82–107; PULSE 72–99; RESP 16–20; TEMP 36.4–36.8; O2SAT 94–98
--- NOTE | 2021-05-13 | SCC_ITS ---
Procedure Done: Intramedullary nailing right tibia 139.8 seconds of fluoroscopic guidance, for a cumulative dose of 4.33 mGy, was provided to Dr. Keating by the radiology department. C-arm images of the RIGHT tibia fibula were saved for the patient's permanent record. [facility]
--- NOTE | 2021-05-13 | XR_ITS ---
WS: [id number] C-ARM RADIOGRAPHS RIGHT TIBIA-FIBULA; 4 IMAGES HISTORY: OR COMPARISON: 05/08/2012. Intraoperative imaging during long intramedullary mima placement through the tibia and distal locking screws. Good alignment of the distal spiral tibial fracture. XR/XR tibia fibula RT 2V [id number] IMPRESSION: Intraoperative imaging during ORIF spiral fracture distal tibia now in good ali gnment.
[2021-05-13 11:57] LABS: Glucose Point of Care 77 mg/dL (70-110)
--- NOTE | 2021-05-13 11:58 | P.HP_ITS ---
Same Day Surgery H&P Indication for Procedure/HPI DATE OF PROCEDURE: May 13, 2021 CHIEF COMPLAINT/INDICATIONFOR SURGICAL PROCEDURE: Right tibia and fibula fracture PREOP DIAGNOSIS: Right tibia/fibula fracture PLANNED PROCEDRUE: Operation Date: 05/13/21 13:40 Proposed Procedures p intramedullary nailing right tibia 21453 S82.209A(Right) - Sanket Keating MD Ms. Resendez is a 40-year-old female who presents after a slip that occurred on 05/07/2021 with resulting right leg pain. Radiographs in the emergency room the following day revealed a fracture of the right distal tibia and proximal fibula. The patient was splinted and discharged home. Radiographs reviewed for x-rays and the patient was counseled over the phone and decision was made to proceed with surgical stabilization. He was unable to make the trip to clinic in a timely fashion, necessitating arrangements to be performed over the phone. She has a history of substance use and currently is managed in the pain clinic with methadone and [place] 10. She has a previous history of amputation of toes on her left foot secondary to sepsis. Medications/Allergies* Home Medications Medication Instructions Recorded Confirmed Type budesonide-formoterol HFA 160 2 puff INHALATION BID PRN 10/04/19 05/13/21 History mcg-4.5 mcg/actuation aerosol inhaler pyridoxine (vitamin B6) 250 mg 250 mg PO DAILY 10/04/19 05/13/21 History tablet thiamine HCl (vitamin B1) 250 mg 250 mg PO DAILY tab 10/04/19 05/13/21 History tablet docusate sodium 100 mg capsule 100 mg PO DAILY cap 02/12/20 05/13/21 History SODIUM BICARBONATE See Rx Instructions .ROUTE .COMPLEX 03/19/20 05/10/21 History Allergies/Adverse Reactions Allergy/AdvReac Type Severity Reaction Status Date / Time sulfamethoxazole Allergy Unknown history of Verified 05/08/21 12:27 [From Bactrim] kidney failure trimethoprim [From Bactrim] Allergy Unknown history of Verified 05/08/21 12:27 kidney failure metoclopramide [From Reglan] AdvReac Unknown edema Verified 05/08/21 12:27 Opioids - Morphine Analogues AdvReac Unknown swelling Verified 05/08/21 12:27 Pertinent History/Comorbid Conditions* Medical History (Updated 05/08/21 @ 13:44 by Geoffrey Gutierrez, ) Acc cut/hem w/ scope exam right knee in 2005 Anxiety disorder Back pain with history of spinal surgery injections 04/2018 Chronic pain Depression Drug-seeking behavior Encounter for long-term use of opiate analgesic Foot pain, bilateral Headache Hypocitraturia Hypothyroidism Insomnia Leg pain, bilateral Muscle spasm Opioid dependence Overdose of analgesic Polysubstance abuse S/P extracorporeal shock wave therapy Shoulder pain Urolithiasis Surgical History (Updated 06/26/20 @ 22:04 by Neno Vasquez MD) History of back surgery History of elbow surgery right History of oral surgery 2016: October 2016 S/p bilateral carpal tunnel release right 2000 S/P foot surgery Bilateral: right great toe, part of second toe on the left foot removed. Status post laser lithotripsy of ureteral calculus Family History (Updated 10/04/19 @ 08:35 by NAHEED Ford) Diabetes Father Cancer Father Hypertension Father Social History Second hand smoke exposure: No Alcohol intake: never Adopted: No Caregiver/support person: No Lives independently: Yes History of recent travel: No Pertinent Exam Findings alert, oriented x 3, clear to auscultation bilaterally and regular rate & rhythm The patient's right lower extremity is splinted in a short leg posterior splint. She has absent medial toes but is well-perfused in the remaining digits. Her sensation is grossly intact to light touch. Pertinent Data PERTINENT DATA: 2 views of the right tibia and fibula are reviewed dated 05/08/2021. The patient has a spiral fracture of the distal tibial shaft with lateral translation and slight shortening. A higher proximal fibular fracture is noted. Recommendations Surgery/Procedure today Other Plans: I discussed the patient's radiographic findings with her in detail. Spiral fracture is somewhat short and there could be a propensity of further displacement. I told her this certainly could be treated in a cast and given sufficient time should go on to healing. I discussed surgical stabilization with her. I think this would more reliably maintain alignment and allow faster return to function. I discussed risk of surgery including bleeding infection. Discussed the possibility of hardware failure. Discussed the possible need for further procedures. I discussed unlikely anesthetic risk. She agrees to proceed with intramedullary nailing of her right tibia. We will proceed today as scheduled. Coding Level of Care Code Acute [employer] for Jose Bautista
[2021-05-13] MEDS: acetaminophen 500 mg Tablet 1000 MG PO (12:02)
[2021-05-13] MEDS: gabapentin 300 mg Capsule PO (12:02)
[2021-05-13] MEDS: CELEcoxib 200 mg Capsule 400 MG PO (12:03)
--- NOTE | 2021-05-13 12:59 | ANES.PREANE2 ---
Pre-Anesthetic Assessment Pre-Anesthetic Assessment: Height/Weight: Height 1.65 m Weight 90.718 kg Preop Diagnosis: Right tibia/fibula fracture Proposed Procedure: Operation Date: 05/13/21 13:40 Proposed Procedures p intramedullary nailing right tibia 21345 S82.209A(Right) - Sanket Keating MD Familial anesthetic complications: none Was Beta Echo taken within 24 hours: N/A Was Clonidine taken within 24 hours: N/A Last intake: Intake Last Liquid Date 05/13/21 Last Liquid Time 23:55 Last Solid Date 05/12/21 Last Solid Time 23:55 Social: Social History: No alcohol and No tobacco Exam: Pre-Anes Outpt Exam: alert, oriented x 3, clear to auscultation bilaterally and regular rate & rhythm Airway: Cervical ROM: WNL MP: 3 Dentition: False Pulmonary: Pulmonary: Sleep apnea GI: GI: GERD Metabolic: Metabolic: DM and Thyroid Musc/skel: Comments: chronic pain Anesthetic Plan: ASA status: 3 Anesthesia: General Risk of > 500 ml blood loss (7ml/kg in children): No PFSH Anesthesia PFSH: Medical History Acc cut/hem w/ scope exam right knee in 2005 Anxiety disorder Back pain with history of spinal surgery injections 04/2018 Chronic pain Depression Drug-seeking behavior Encounter for long-term use of opiate analgesic Foot pain, bilateral Headache Hypocitraturia Hypothyroidism Insomnia Leg pain, bilateral Muscle spasm Opioid dependence Overdose of analgesic Polysubstance abuse S/P extracorporeal shock wave therapy Shoulder pain Urolithiasis Surgical History History of back surgery History of elbow surgery right History of oral surgery 2016: October 2016 S/p bilateral carpal tunnel release right 2000 S/P foot surgery Bilateral: right great toe, part of second toe on the left foot removed. Status post laser lithotripsy of ureteral calculus Family History Father Cancer Hypertension Diabetes Social History Second hand smoke exposure: No Alcohol intake: never Adopted: No Caregiver/support person: No Lives independently: Yes History of recent travel: No Data Anesthesia Other Labs: Laboratory Results - last 48 hr 05/13/21 11:53 POC Glucose 77 Cardiac Studies: No Data to Display
[2021-05-13] MEDS: sodium chloride 0.9% 1,000 ML 30 ML IV (13:57)
[2021-05-13] MEDS: fentaNYL 50 mcg/mL INJ 2mL IVP (14:11)
--- NOTE | 2021-05-13 15:57 | P.OP_ITS ---
Operative Report Date of procedure: May 13, 2021 Pre-op Diagnosis: Right tibia/fibula fracture Post-op diagnosis: same Post-op Diagnosis: The patient a spiral distal tibial diaphyseal fracture with a high proximal fibular fracture Post-op Findings: Same Procedure Done: Intramedullary nailing right tibia Implants: Maggie Alpha 10mm by 330mm tibial nail. Proximal locking scew x 1, distal locking screw x3 Pathology: none sent Surgeon: Sanket Keating Anesthesia: General Estimated blood loss (mL): 50 Tourniquet time (min): 45 Complications: None Findings: The patient had a spiral fracture of the right distal tibial diaphysis with shortening and translation a higher proximal fibular fracture Condition: stable Disposition: PACU Procedure: The patient was taken to the operating room given 2 g of Ancef and a general anesthesia. A timeout was performed. The right lower extremity was prepped and draped on the fracture table with a bump under the knee. A tourniquet was inflated to 325 mmHg. A 4 cm long incision was made along the right medial patella and patellar tendon and dissection carried down to the anterior tibia. A sharp awl awl was used to enter the tibial canal. A ball- tipped guidewire was passed down across the fracture. A small anterior medial incision were made over the fracture and the fracture reduced with a reduction clamp. Sequential reaming was accomplished up to 11.5 mm. A 10 x 330 mm mima was then passed with minimal difficulty. A single proximal static medial lateral screw was placed proximally. Utilizing fluoroscopy with 2 medial to lateral and 1 anterior to posterior screw were placed distally. Wounds were irrigated with saline. Deep tissues were closed with 2-0 Vicryl. The skin was closed with skin antonio. Sterile dressings were applied. The patient was extubated and taken to recovery room in stable condition.
[2021-05-13] MEDS: fentaNYL 50 mcg/mL INJ 2mL 100 MCG IVP (16:07)
[2021-05-13] MEDS: oxyCODONE 5 mg IR Tab/Cap 10 MG PO (16:47)
--- NOTE | 2021-05-13 18:00 | ANE.PACU2 ---
Inpatient post-anesthesia follow up: Airway intact: Yes Vital signs: Temperature 97.6 F Pulse Rate 92 Respiratory Rate 17 Blood Pressure 138/107 Pulse Oximetry 98 Oxygen Delivery Me thod Room Air Oxygen Flow Rate 5 Fraction of Inspir ed Oxygen Hydration adequate: Yes Nausea and vomiting: No Pain level: 3 Mental status: Baseline
== END 2021-05-13 17:32 | disposition home or self-care (01) ==
PROVIDERS: PCP Nurse Practitioner Family; Visit Provider Orthopaedic Surgery
PROC: (CPT 27759; principal; 2021-05-13 13:30)
DX: S82.301A Unspecified fracture of lower end of right tibia, initial encounter for closed fracture (principal); S82.831A Other fracture of upper and lower end of right fibula, initial encounter for closed fracture; W01.0XXA Fall on same level from slipping, tripping and stumbling without subsequent striking against object, initial encounter; F41.9 Anxiety disorder, unspecified; F32.9 Major depressive disorder, single episode, unspecified; E03.9 Hypothyroidism, unspecified; Z82.49 Family history of ischemic heart disease and other diseases of the circulatory system; Z83.3 Family history of diabetes mellitus
CPT/HCPCS: 27759; 36416; 73590; 76000; 81025; 82962; C1713; J0690; J1100; J1170; J1580; J2405; J2704; J3010; J7030

== ENCOUNTER → 2021-05-25 14:30 | Outpatient (BNVA) | payer MEDICAID, SELFPAY | PROVIDERS: PCP Nurse Practitioner Family; Visit Provider Anesthesiology | DX: M79.671 Pain in right foot (principal); M79.672 Pain in left foot; M79.604 Pain in right leg; M79.605 Pain in left leg; M54.9 Dorsalgia, unspecified; Z79.891 Long term (current) use of opiate analgesic | CPT/HCPCS: 99213; 99214 ==

== ENCOUNTER 2021-06-11 14:47 | Outpatient (CLI) | payer MEDICAID, SELFPAY ==
--- NOTE | 2021-06-11 14:45 | XR_ITS ---
WS: [id number] SCREENING DEXA SCAN [facility] IDXA CLINICAL INFORMATION: M84.40XA - Pathological fracture, unspecified site, initi... COMPARISON: None. FINDINGS: The L1-L4 bone mineral density measures 1.002 g/cm2. This corresponds to a T score score of -1.5 and Z score of -2.0. Left femoral neck bone mineral density measures 0.739 g/cm2. This corresponds to a T score of -2.1 an d Z score of -2.3. Right femoral neck bone mineral density measures 0.701 g/cm2. This corresponds to a T score -2.4of an d Z score of -2.6. Mean femoral neck bone mineral density measures 0.720 g/cm2. This corresponds to a T score of -2.3 an d Z score of -2.5. XR/XR DEXA axial skeleton* [id number] IMPRESSION: Osteopenia in the lumbar spine. Osteopenia in the femoral necks approaching ost eoporosis. FRAX score unable to be calculated due to age.
== END 2021-06-11 14:48 | disposition home or self-care (01) ==
PROVIDERS: PCP Nurse Practitioner Family; Visit Provider Nurse Practitioner Family
DX: M84.40XA Pathological fracture, unspecified site, initial encounter for fracture (principal); M85.88 Other specified disorders of bone density and structure, other site
CPT/HCPCS: 77080

== ENCOUNTER → 2021-06-22 11:03 | Outpatient (BNVA) | payer MEDICAID, SELFPAY | PROVIDERS: PCP Nurse Practitioner Family; Visit Provider Orthopaedic Surgery | DX: Z48.89 Encounter for other specified surgical aftercare (principal) | CPT/HCPCS: 73590 ==

== ENCOUNTER → 2021-07-14 11:27 | Outpatient (BNVA) | payer MEDICAID, SELFPAY | PROVIDERS: PCP Nurse Practitioner Family; Visit Provider Orthopaedic Surgery | DX: Z48.89 Encounter for other specified surgical aftercare (principal) | CPT/HCPCS: 73590 ==

== ENCOUNTER → 2021-07-16 07:44 | Outpatient (BNVA) | payer MEDICAID, SELFPAY | PROVIDERS: PCP Nurse Practitioner Family; Visit Provider Nurse Practitioner Family | DX: E11.9 Type 2 diabetes mellitus without complications (principal); G47.09 Other insomnia; E03.9 Hypothyroidism, unspecified; Z68.31 Body mass index [BMI] 31.0-31.9, adult | CPT/HCPCS: 80053; 80061 ==

== ENCOUNTER → 2021-07-22 08:03 | Outpatient (BNVA) | payer MEDICAID, SELFPAY | PROVIDERS: PCP Nurse Practitioner Family; Visit Provider Anesthesiology | DX: G89.29 Other chronic pain (principal); M79.604 Pain in right leg; M79.605 Pain in left leg; M79.671 Pain in right foot; M79.672 Pain in left foot; M54.9 Dorsalgia, unspecified; R29.898 Other symptoms and signs involving the musculoskeletal system; E11.9 Type 2 diabetes mellitus without complications; F41.9 Anxiety disorder, unspecified; F32.9 Major depressive disorder, single episode, unspecified; Z79.891 Long term (current) use of opiate analgesic; Z79.4 Long term (current) use of insulin | CPT/HCPCS: 99213 ==

== ENCOUNTER → 2021-10-18 09:06 | Outpatient (BNVA) | payer MEDICAID, SELFPAY | PROVIDERS: PCP Nurse Practitioner Family; Visit Provider Family Medicine | DX: E11.9 Type 2 diabetes mellitus without complications (principal) | CPT/HCPCS: 83036 ==

== ENCOUNTER → 2021-10-28 14:48 | Outpatient (BNVA) | payer MEDICAID, SELFPAY | PROVIDERS: PCP Nurse Practitioner Family; Visit Provider Nurse Practitioner Family | DX: Z20.822 Contact with and (suspected) exposure to COVID-19 (principal); R52 Pain, unspecified; R53.83 Other fatigue | CPT/HCPCS: 87635 ==

== ENCOUNTER → 2021-11-03 08:36 | Outpatient (BNVA) | payer MEDICAID, SELFPAY | PROVIDERS: PCP Nurse Practitioner Family; Visit Provider Anesthesiology | DX: G89.29 Other chronic pain (principal); M79.671 Pain in right foot; M79.672 Pain in left foot; M79.604 Pain in right leg; M79.605 Pain in left leg; M54.9 Dorsalgia, unspecified; R60.0 Localized edema; Z79.891 Long term (current) use of opiate analgesic | CPT/HCPCS: 99214 ==

== ENCOUNTER → 2021-12-01 10:58 | Outpatient (BNVA) | payer MEDICAID, SELFPAY | PROVIDERS: PCP Nurse Practitioner Family; Visit Provider Nurse Practitioner Family | DX: R30.0 Dysuria (principal); G89.29 Other chronic pain | CPT/HCPCS: 81000 ==

== ENCOUNTER → 2022-03-28 14:00 | Outpatient (BNVA) | payer MEDICAID, SELFPAY | PROVIDERS: PCP Nurse Practitioner Family; Visit Provider Internal Medicine Nephrology | DX: N18.31 Chronic kidney disease, stage 3a (principal) | CPT/HCPCS: 80069; 82043; 82306; 82310; 83970; 85025 ==

== ENCOUNTER → 2022-04-19 12:00 | Outpatient (BNVA) | payer MEDICAID, SELFPAY | PROVIDERS: PCP Nurse Practitioner Family; Visit Provider Nurse Practitioner Family | DX: G89.29 Other chronic pain (principal); E11.9 Type 2 diabetes mellitus without complications; E03.9 Hypothyroidism, unspecified | CPT/HCPCS: 80053; 80061; 84443 ==

== ENCOUNTER → 2022-07-12 11:14 | Outpatient (BNVA) | payer MEDICAID, SELFPAY | PROVIDERS: PCP Nurse Practitioner Family; Visit Provider Nurse Practitioner Family | DX: E11.9 Type 2 diabetes mellitus without complications (principal) | CPT/HCPCS: 83036 ==

== ENCOUNTER → 2023-01-11 13:40 | Outpatient (BNVA) | payer MEDICAID, SELFPAY | PROVIDERS: PCP Nurse Practitioner Family; Visit Provider Nurse Practitioner Family | DX: E03.9 Hypothyroidism, unspecified (principal); E11.9 Type 2 diabetes mellitus without complications | CPT/HCPCS: 80053; 80061; 83036; 84443 ==

== ENCOUNTER 2023-01-31 10:21 | Emergency (ER) | payer MEDICAID, SELFPAY ==
[2023-01-31 10:40] VITALS: BP 132/81; PULSE 136; RESP 15; TEMP 37.7; O2SAT 95; BMI 49.8
[2023-01-31 11:24] LABS: Urine Appearance Cloudy (CLEAR); Urine Color Yellow (Yellow)
[2023-01-31 11:25] LABS: Add Urine Microscopic? YES; Bilirubin Urine Neg (Negative); Blood Urine 3+ (Negative); Glucose Urine UA 2+ (Normal); Ketones Urine Negative (Negative); Leukocyte Esterase Urine 2+ (Negative); Nitrate Urine Positive (Negative); Protein Urine 1+ (Negative); RBC Urine TOO NUMEROUS TO CNT /hpf (0-2); Urobilinogen Urine Neg (Negative); WBC Urine TOO NUMEROUS TO CNT /hpf (0-5); pH Urine 7 (5-7)
[2023-01-31 11:26] LABS: Add Urine Culture? Yes; Bacteria Urine 4+ /hpf; Squamous Epithelial Cell Urine 0-4 /hpf (0-5)
[2023-01-31 11:36] VITALS: BP 132/85; PULSE 133; O2SAT 95
--- NOTE | 2023-01-31 11:47 | CT_ITS ---
WS: [id number] CT HEAD TECHNIQUE: Noncontrast CT of the head obtained from the skullbase to the vertex. CLINICAL INFORMATION: fell down steps-large wound to scalp COMPARISON: CT June 26, 2020 DLP: 1105.[address] scans at [facility] use at least one of these dose optimization techniques: automated e xposure control; mA and/or kV adjustment per patient size (includes targeted exams where dose is matc hed to clinical indication); or iterative reconstruction. FINDINGS: No evidence of intracranial hemorrhage or mass effect. Ventricular system and basal cisterns are daniels nt. No extra-axial fluid collections. No evidence of mass or mass effect. Normal laws-white differen tiation. Paranasal sinuses and mastoid air cells are well aerated. RIGHT parietal scalp laceration. Normal und erlying calvarium. 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 Nor mal 4th ventricle. No hydrocephalus. CT/CT head wo con* [id number] IMPRESSION: 1. No evidence of intracranial hemorrhage or mass effect. 2. RIGHT parietal scalp laceration. Normal underlying calvarium. 3. No acute intracranial findings.
--- NOTE | 2023-01-31 11:49 | ED_ITS ---
HPI - Fall General: Chief Complaint: Fall Stated Complaint: Fall, Head injury Time Seen by Provider: 01/31/23 10:31 History of Present Illness: Patient is a 42-year-old female comes to the ED after a fall injury. Patient says she was walking down steps and lost her balance and fell down steps. She states that she hit the back of her head. Denies any loss of consciousness, vomiting, headache or seizure-like activity. She has a wound on the back of her scalp that was bleeding, but stopped bleeding before arriving to the ED. She is also complaining of having a UTI that started about 3 days ago she is having burning type pain when she urinates. Denies any fevers, vomiting, abdominal pain, bladder pain, bilateral lower back pain. Patient states she is up-to-date on her tetanus. Associated symptoms-after fall: Denies abdominal pain, chest pain, headache(s), hematuria or neck pain Review of Systems Const: Denies: fever(s), chills or fatigue Eyes: Denies: change in vision or eye discomfort ENMT: Denies: throat pain, odynophagia, nasal discharge or nasal congestion Card: Denies: chest pain, palpitations, edema, swelling of feet/ankles, dyspnea on exertion or orthopnea Resp: Denies: dyspnea, productive cough or non-productive cough GI: Denies: abdominal pain, nausea, vomiting, diarrhea, constipation or he matochezia : Reports: dysuria; Denies: flank pain or hematuria Musc: Denies: neck pain, back pain or extremity swelling Skin/Breast: Reports: new lesions (Wound to scalp); Denies: rash Neuro: Denies: headache(s), numbness in extremities or weakness in extremities PFS ED PFSH: Medical History Acc cut/hem w/ scope exam right knee in 2005 Anxiety disorder Back pain with history of spinal surgery injections 04/2018 Chronic pain Depression Drug-seeking behavior Encounter for long-term use of opiate analgesic Foot pain, bilateral Headache Hypocitraturia Hypothyroidism Insomnia Leg pain, bilateral Muscle spasm Opioid dependence Overdose of analgesic Polysubstance abuse S/P extracorporeal shock wave therapy Shoulder pain Urolithiasis Surgical History History of back surgery History of elbow surgery right History of oral surgery 2016: October 2016 S/p bilateral carpal tunnel release right 2000 S/P foot surgery Bilateral: right great toe, part of second toe on the left foot removed. Status post laser lithotripsy of ureteral calculus Family History Father Cancer Hypertension Diabetes Social History Smoking and tobacco status: never smoked Second hand smoke exposure: No Alcohol intake: never Substance/Drug Use: never Adopted: No Caregiver/support person: No Lives independently: Yes Physical Exam Const: COMMON NORMALS: no acute distress, patient oriented x3 and alert HENMT: COMMON NORMALS: normocephalic HEAD & SCALP: normocephalic and laceration right parietal Details of head laceration: linear and superficial; not actively bleeding, not pulsatile bleeding and not contaminated Head laceration size: 2 cm; no Griffin's sign and no raccoon eyes MOUTH: Normal oral and palatal mucosa present THROAT: posterior oropharynx normal and uvula midline Eye: COMMON NORMALS: Equal, round and reactive pupils present, EOMs intact bilaterally and conjunctivae normal CONJUNCTIVA: Yes conjunctivae normal PUPIL: Yes Equal, round and reactive pupils present Neck/C-Spine: COMMON NORMALS: supple GENERAL: Yes normal visual inspection Resp: COMMON NORMALS: normal respiratory effort, No retractions, No use of accessory muscles and clear to auscultation bilaterally AUSCULTATION: clear to auscultation bilaterally Cardio: COMMON NORMALS: regular rate, regular rhythm, S1 normal heart sound present, S2 normal heart sound present, No gallops present (Cardio), No clicks present (Cardio), No murmurs present (Cardio) and Peripheral pulses 2+ throughout RATE: regular rate RHYTHM: regular rhythm HEART SOUNDS: S1 normal heart sound present and S2 normal heart sound present PERIPHERAL PULSES: Peripheral pulses 2+ throughout GI: COMMON NORMALS: Normal to inspection, nondistended, normoactive bowel sounds present, Soft to palpation, non-tender and no masses PALPATION: Yes Soft to palpation : COMMON NORMALS: Yes no CVA tenderness BLADDER/KIDNEY EXAM: Yes no CVA tenderness Back/Pelvis: COMMON NORMALS: no CVA tenderness Extremity: COMMON NORMALS: normal to inspection Neuro: COMMON NORMALS: patient oriented x3 SENSORIUM/ORIENTATION: Yes alert GAIT: Yes Normal gait present Skin: GENERAL SKIN EXAM: dry skin Procedures Laceration Laceration 1: Site: scalp (Right parietal) Side (If applicable): right Size (cm): 2 Description: linear and clean Depth: simple, single layer Local Anesthetic: lidocaine 1% Amount of anesthesia used (mL): 5 Pre-repair: irrigated extensively (With normal saline) Skin layer closed with: other (Rachael) Size (cm): other ([place]) Number of sutures: 4 Technique: other ([place]) Course Vital Signs: Vital signs: Vital Signs Temperature 99.8 F H 01/31/23 10:40 Pulse Rate 90 01/31/23 15:23 Respiratory Rate 15 01/31/23 10:40 Blood Pressure 137/106 01/31/23 15:23 Pulse Oximetry 97 01/31/23 15:23 Oxygen Delivery Me thod Room Air 01/31/23 12:44 MDM - Fall Medical Decision Making Patient is a 42-year-old female who comes to the ED with head injury after fall and UTI symptoms. Patient tripped while going down her steps and fell backwards and has a laceration to back of scalp. She is also having pain with urination that started several days ago. At triage her pulse was tacky at 136 but rest of her vitals are stable. Patient appears nontoxic and in no acute distress or pain. She does have a 2 cm superficial laceration to right parietal region of scalp. Rest of exam is benign. White blood cell count 18.2 seen and CMP are unremarkable. UA shows obvious UTI. Head CT showed no acute findings. The nurse irrigated scalp laceration extensively with normal saline and then lidocaine 1% was used as local. 4 rachael were placed to close laceration on scalp. Patient was given 1 L of IV fluids and IV antibiotics in the ED. Her pulse went down to 90 before discharge and the rest of her vitals were stable as well. Patient was diagnosed with a UTI and laceration scalp. She was discharged home on antibiotic. She was stable for discharge home and given strict return to ED precautions. Follow-up with PCP within the next several days for reevaluation. Patient understood and agreed with plan. Lab Data I reviewed the patient's lab results. 01/31/23 11:37 01/31/23 11:[address] 01/31/23 11:47 IMPRESSION: 1. No evidence of intracranial hemorrhage or mass effect. 2. RIGHT parietal scalp laceration. Normal underlying calvarium. 3. No acute intracranial findings. Laboratory Results WBC 18.2 10^3/uL (4.0-10.0) H 01/31/23 11:37 RBC 4.47 10^6/uL (4.1-5.3) 01/31/23 11:37 Hgb 11.8 g/dL (11.5-15.3) 01/31/23 11:37 Hct 38.0 % (37.0-47.0) 01/31/23 11:37 MCV 85.0 fl (81-99) 01/31/23 11:37 MCH 26.4 pg (28.0-34.0) L 01/31/23 11:37 MCHC 31.1 g/dL (30.0-36.0) 01/31/23 11:37 RDW 14.9 % (12.1-15.1) 01/31/23 11:37 Plt Count 347 10^3/cmm (130-400) 01/31/23 11:37 MPV 9.3 fL (7.4-10.4) 01/31/23 11:37 Neut % (Auto) 84.8 % 01/31/23 11:37 Lymph % (Auto) 9.5 % 01/31/23 11:37 [place] % (Auto) 4.4 % 01/31/23 11:37 Eos % (Auto) 0.2 % 01/31/23 11:37 Baso % (Auto) 0.3 % 01/31/23 11:37 Neut # (Auto) 15.40 10^3/uL (1.8-7.7) H 01/31/23 11:37 Lymph # (Auto) 1.7 10^3/uL (0.8-4.8) 01/31/23 11:37 [place] # (Auto) 0.8 10^3/uL (0.2-0.9) 01/31/23 11:37 Eos # (Auto) 0.0 10^3/uL (0.0-0.8) 01/31/23 11:37 Baso # (Auto) 0.1 10^3/uL (0.0-0.1) 01/31/23 11:37 Nucleated RBC % (auto) 0 % 01/31/23 11:37 Nucleated RBCs # 0.0 /100WBC 01/31/23 11:37 Sodium 137 mmol/L (136-145) 01/31/23 11:37 Potassium 4.5 mmol/L (3.5-5.1) 01/31/23 11:37 Chloride 103 mmol/L (98-107) 01/31/23 11:37 Carbon Dioxide 22 mmol/L (22-29) 01/31/23 11:37 Anion Gap 16.5 (5-19) 01/31/23 11:37 BUN 10 mg/dL (6-20) 01/31/23 11:37 Creatinine 1.0 mg/dL (0.5-0.9) H 01/31/23 11:37 GFR Calculation 61.1 mL/min (90-130) L 01/31/23 11:37 Glucose 292 mg/dL (65-115) H 01/31/23 11:37 Calculated Osmolality 294 mOsm/kg (285-295) 01/31/23 11:37 Calcium 9.6 mg/dL (8.5-10.5) 01/31/23 11:37 Total Bilirubin 0.4 mg/dL (0.15-1.2) 01/31/23 11:37 AST 20 U/L (0-32) 01/31/23 11:37 ALT 21 U/L (0-33) 01/31/23 11:37 Alkaline Phosphatase 74 U/L (35-105) 01/31/23 11:37 Total Protein 7.5 g/dL (6.6-8.7) 01/31/23 11:37 Albumin 4.0 g/dL (3.5-5.2) 01/31/23 11:37 Globulin 3.5 g/dL (1.3-4.6) 01/31/23 11:37 HCG, Qual Negative (Negative) 01/31/23 11:37 Urine Color Yellow (Yellow) 01/31/23 10:35 Urine Appearance Cloudy (CLEAR) A 01/31/23 10:35 Urine pH 7 (5-7) 01/31/23 10:35 Ur Specific [place] 1.010 (1.005-1.030) 01/31/23 10:35 Urine Protein 1+ (Negative) H 01/31/23 10:35 Urine Glucose (UA) 2+ (Normal) H 01/31/23 10:35 Urine Ketones Negative (Negative) 01/31/23 10:35 Urine Blood 3+ (Negative) H 01/31/23 10:35 Urine Nitrate Positive (Negative) H 01/31/23 10:35 Urine Bilirubin Neg (Negative) 01/31/23 10:35 Urine Urobilinogen Neg mg/dL (Negative) 01/31/23 10:35 Ur Leukocyte Esterase 2+ (Negative) H 01/31/23 10:35 Urine RBC Too numerous to cnt /hpf (0-2) H 01/31/23 10:35 Urine WBC Too numerous to cnt /hpf (0-5) H 01/31/23 10:35 Ur Squamous Epith Cells 0-4 /hpf (0-5) H 01/31/23 10:35 Amorphous Sediment Not Reportable 01/31/23 10:35 Urine Bacteria 4+ /hpf (NONE) H 01/31/23 10:35 Discharge Plan Discharge Patient Disposition: Home Clinical Impression: UTI (urinary tract infection) Qualifiers: Urinary tract infection type: acute cystitis Hematuria presence: with hematuria Qualified Code(s): N30.01 - Acute cystitis with hematuria Laceration of scalp Qualifiers: Encounter type: initial encounter Qualified Code(s): S01.01XA - Laceration without foreign body of scalp, initial encounter Condition: Stable Prescriptions: New ciprofloxacin HCl 500 mg tablet 500 mg PO BID 7 Days Qty: 14 0RF No Action docusate sodium [Colace] 100 mg capsule 100 mg PO DAILY PRN (Reason: Constipation) B-complex with vitamin C [Super B Complex-Vitamin C] Tablet 1 tab PO DAILY hydrocodone-acetaminophen 10-325 mg tablet 1 tab PO BID PRN (Reason: pain) 30 Days Qty: 60 0RF Rx Instructions: fill on or after 12/03/21 Symbicort 160-4.5 mcg/actuation HFA aerosol inhaler 2 puff INHALATION BID PRN (Reason: SHORTNESS OF BREATH) Qty: 10.2 5RF Prilosec OTC 20 mg tablet,delayed release (DR/EC) 20 mg PO DAILY Qty: 90 3RF Lantus Solostar U-100 Insulin 100 unit/mL (3 mL) insulin pen 10 unit SUBCUT DAILY Qty: 15 6RF methadone 10 mg tablet 10 mg PO Q6H 30 Days Qty: 120 0RF Rx Instructions: fill on or after 11/11/21 cetirizine 10 mg tablet See Rx Instructions .ROUTE .COMPLEX Qty: 90 3RF Dose Instruction: TAKE ONE TABLET BY MOUTH ONCE DAILY Rx Instructions: TAKE ONE TABLET BY MOUTH ONCE DAILY (DME) OneTouch Ultra Test Strip See Rx Instructions .ROUTE .COMPLEX Qty: 100 2RF Dose Instruction: USE THREE TIMES A DAY Rx Instructions: USE THREE TIMES A DAY naloxone [Narcan] 4 mg/actuation spray,non-aerosol 4 mg intranasal Q2M PRN (Reason: opioid overdose) Qty: 2 0RF Rx Instructions: spray 1 dose into ONE nostril; alternate nostrils w each dose until help arrives (DME) pen needle, diabetic [TechLITE Pen Needle] 32 gauge x 5/32 needle See Rx Instructions .ROUTE .COMPLEX Qty: 100 3RF Dose Instruction: USE DIRECTED ONCE DAILY Rx Instructions: USE DIRECTED ONCE DAILY (DME) pen needle, diabetic [1st Tier Unifine Pentips] 32 gauge x 5/32 needle See Rx Instructions .Route Qty: 100 3RF Rx Instructions: As directed WITH INSULIN DAILY metformin 1,000 mg tablet See Rx Instructions .ROUTE .COMPLEX Qty: 60 3RF Dose Instruction: TABLET BY MOUTH TWICE DAILY FOR 30 DAYS Rx Instructions: TABLET BY MOUTH TWICE DAILY FOR 30 DAYS baclofen 20 mg tablet See Rx Instructions .ROUTE .COMPLEX Qty: 90 2RF Dose Instruction: TAKE ONE TABLET BY MOUTH 3 TIMES DAILY FOR 30 DAYS NEEDED FOR SPASMS Rx Instructions: TAKE ONE TABLET BY MOUTH 3 TIMES DAILY FOR 30 DAYS NEEDED FOR SPASMS (DME) blood-glucose meter [Blood Glucose Monitoring] Kit See Rx Instructions .ROUTE .MEDSUPPLY Qty: 1 0RF Rx Instructions: As directed (DME) Blood Glucose Test Strip See Rx Instructions .ROUTE .MEDSUPPLY Qty: 10 0RF Rx Instructions: As directed Vitamin D2 1,250 mcg (50,000 unit) capsule 50,000 unit PO Q7D Calcium 500 500 mg calcium (1,250 mg) Tablet 500 mg PO DAILY tamsulosin 0.4 mg capsule 0.4 mg PO DAILY sodium bicarbonate 650 mg Tablet 1,300 mg PO TID levothyroxine 50 mcg tablet 50 mcg PO DAILY gabapentin 300 mg capsule 300 mg PO QID folic acid 1 mg tablet 1 mg PO DAILY Ambien 10 mg tablet 10 mg PO BEDTIME Depo-Provera 150 mg/mL suspension 150 mg IM Q90D Rx Instructions: q 3 months PT JUST HAD INJECTION A COUPLE OF DAYS AGO. potassium citrate 15 mEq tablet extended release 15 meq PO BID Discharge Orders: Discharge ED (Routine); Ordered 01/31/23 Ordered By: Jonathon Macias Referrals: Ami Kumar NP [Primary Care Provider] - Discharge Diet: Regular Discharge Activity: Increase activity as tolerated Patient Instructions: Scalp Laceration, Urinary Tract Infection in Women (DC) Activity Restrictions/Additional Instructions: Follow-up with medical provider as directed in the next 3 to 5 days for reevaluation. Take medications as prescribed. have rachael removed and 7 to 10 days. Return to the ER or your medical provider if condition worsens. Please read and understand discharge instructions. Thank you for choosing [facility] for your healthcare needs today. Please realize this is an emergency room and that we are providing you with a medical screening exam and this may not be complete and all inclusive of all the testing and or work up that you may need to determine your ailment or severity of your illness. It is very important that you follow up as instructed or that you return to the Emergency Department should you have concerns or if your condition changes or worsens in any way. Coding Level of Care Code ED Registered Nurse Maternity for Jose Bautista
--- NOTE | 2023-01-31 11:50 | ECG_ITS ---
[facility] Test Date: 2023-01-31 Pat Name: Silvia Resendez Department: Room: Gender: Female Clock Repairer: : 1980 Requested By: Jonathon Macias Order Number: [id number] Josie MD: Dennis Barreto M.D. Measurements Intervals [place] Rate: 131 P: 26 OR: 121 QRS: 7 QRSD: 82 T: 24 QT: 333 QTc: 493 Interpretive Statements SINUS TACHYCARDIA POSSIBLE ANTERIOR MYOCARDIAL INFARCTION , PROBABLY OLD [30 ms Q WAVE IN V3/V4, OR R < 0.2 mV IN V4 Compared to ECG 06/26/2020 22:23:30 Myocardial infarct finding now present Sinus rhythm no longer present Sinus arrhythmia no longer present T-wave abnormality no longer present Electronically Signed On 01-31-2023 20:41:08 CDT by Dennis Barreto M.D. [id number]
[2023-01-31 11:58] LABS: Basophils # 0.1 10^3/uL (0.0-0.1); Basophils % 0.3 %; Eosinophils % 0.2 %; Hemoglobin 11.8 g/dL (11.5-15.3); Lymphocytes # 1.7 10^3/uL (0.8-4.8); Lymphocytes % 9.5 %; Mean Corpuscular HGB Conc 31.1 g/dL (30.0-36.0); Mean Corpuscular Hemoglobin 26.4 pg (28.0-34.0); Mean Platelet Volume 9.3 fL (7.4-10.4); Monocytes # 0.8 10^3/uL (0.2-0.9); Monocytes % 4.4 %; Neutrophils % 84.8 %; Nucleated Red Blood Cells % 0 %; Platelet Count 347 10^3/cmm (130-400); Red Blood Count 4.47 10^6/uL (4.1-5.3); Red Cell Distribution Width 14.9 % (12.1-15.1); White Blood Count 18.2 10^3/uL (4.0-10.0)
[2023-01-31 12:10] LABS: HCG, Serum Qual Negative (Negative)
[2023-01-31 12:15] LABS: Alanine Aminotransferase 21 U/L (0-33); Alkaline Phosphatase 74 U/L (35-105); Anion Gap 16.5 (5-19); Aspartate Amino Transferase 20 U/L (0-32); Blood Urea Nitrogen 10 mg/dL (6-20); Calcium 9.6 mg/dL (8.5-10.5); Carbon Dioxide 22 mmol/L (22-29); Chloride 103 mmol/L (98-107); Globulin 3.5 g/dL (1.3-4.6); Glomerular Filtration Rate 61.1 mL/min (90-130); Glucose 292 mg/dL (65-115); Osmolality Calculated 294 mOsm/kg (285-295); Potassium 4.5 mmol/L (3.5-5.1); Sodium 137 mmol/L (136-145); Total Bilirubin 0.4 mg/dL (0.15-1.2); Total Protein 7.5 g/dL (6.6-8.7)
[2023-01-31] MEDS: sodium chloride 0.9% 1,000 ML 999 ML IV (12:41)
[2023-01-31 12:44] VITALS: BP 125/80; PULSE 114; O2SAT 94
[2023-01-31] MEDS: cefTRIAXone 2,000 MG in sodium chloride 0.9% (plus) 50 ML 100 MG IV (14:11)
[2023-01-31 15:23] VITALS: BP 137/106; PULSE 90; O2SAT 97
== END 2023-01-31 15:29 | disposition home or self-care (01) ==
PROVIDERS: Emergency Provider Physician Assistant; PCP Nurse Practitioner Family
DX: N30.01 Acute cystitis with hematuria (principal); S01.01XA Laceration without foreign body of scalp, initial encounter; Z79.4 Long term (current) use of insulin; Z79.84 Long term (current) use of oral hypoglycemic drugs; W10.8XXA Fall (on) (from) other stairs and steps, initial encounter
CPT/HCPCS: 12001; 36415; 70450; 80053; 81001; 84703; 85025; 87077; 87086; 87186; 93005; 96361; 96365; 99285; J0696; J7030

== ENCOUNTER → 2023-05-15 13:52 | Outpatient (BNVA) | payer MEDICAID, SELFPAY | PROVIDERS: PCP Nurse Practitioner Family; Visit Provider Family Medicine | DX: R30.0 Dysuria (principal) | CPT/HCPCS: 81003; 87077; 87086; 87184 ==

== ENCOUNTER → 2023-06-01 15:57 | Outpatient (BNVA) | payer MEDICAID, SELFPAY | PROVIDERS: PCP Nurse Practitioner Family; Visit Provider Internal Medicine Nephrology | DX: N18.31 Chronic kidney disease, stage 3a (principal) | CPT/HCPCS: 82306; 82310; 83970; 85025 ==

== ENCOUNTER → 2023-07-13 11:49 | Outpatient (BNVA) | payer MEDICAID, SELFPAY | PROVIDERS: PCP Nurse Practitioner Family; Visit Provider Nurse Practitioner Family | DX: E11.9 Type 2 diabetes mellitus without complications (principal); Z23 Encounter for immunization | CPT/HCPCS: 80053; 80061; 83036 ==

== ENCOUNTER → 2024-05-09 09:00 | Outpatient (BNVA) | payer MEDICAID, SELFPAY | PROVIDERS: PCP Nurse Practitioner Family; Visit Provider Nurse Practitioner Family | DX: N18.31 Chronic kidney disease, stage 3a (principal); E11.9 Type 2 diabetes mellitus without complications | CPT/HCPCS: 80069; 82043; 82306; 82310; 83036; 83970; 85025 ==

== ENCOUNTER → 2024-05-15 09:07 | Outpatient (BNVA) | payer MEDICAID, SELFPAY | PROVIDERS: PCP Nurse Practitioner Family; Visit Provider Internal Medicine Cardiovascular Disease | DX: I47.11 Inappropriate sinus tachycardia, so stated (principal) | CPT/HCPCS: 99203 ==

== ENCOUNTER → 2024-05-15 09:44 | Outpatient (BNVA) | payer MEDICAID, SELFPAY | PROVIDERS: PCP Nurse Practitioner Family; Visit Provider Internal Medicine Cardiovascular Disease | DX: R00.0 Tachycardia, unspecified (principal) | CPT/HCPCS: 93270 ==

== ENCOUNTER → 2024-07-05 10:05 | Outpatient (BNVA) | payer MEDICAID, SELFPAY | PROVIDERS: PCP Nurse Practitioner Family; Visit Provider Nurse Practitioner Family | DX: R00.0 Tachycardia, unspecified (principal) | CPT/HCPCS: 99213 ==

== ENCOUNTER → 2024-08-06 11:01 | Outpatient (BNVA) | payer MEDICAID, SELFPAY | PROVIDERS: PCP Nurse Practitioner Family; Visit Provider Nurse Practitioner Family | DX: R00.0 Tachycardia, unspecified (principal); F11.20 Opioid dependence, uncomplicated; Z87.440 Personal history of urinary (tract) infections; R35.0 Frequency of micturition | CPT/HCPCS: 36415; 80306; 81001; 84443; 93005; 99214 ==

== ENCOUNTER → 2024-12-13 10:25 | Outpatient (BNVA) | payer MEDICAID, SELFPAY | PROVIDERS: PCP Nurse Practitioner Family; Visit Provider Nurse Practitioner Family | DX: E03.9 Hypothyroidism, unspecified (principal); E78.00 Pure hypercholesterolemia, unspecified; E11.9 Type 2 diabetes mellitus without complications | CPT/HCPCS: 80053; 80061; 82043; 83036; 84443 ==

== ENCOUNTER → 2025-02-06 12:39 | Outpatient (BNVA) | payer MEDICAID, SELFPAY | PROVIDERS: PCP Nurse Practitioner Family; Visit Provider Internal Medicine | DX: I47.11 Inappropriate sinus tachycardia, so stated (principal); Z87.891 Personal history of nicotine dependence; G89.29 Other chronic pain; M54.9 Dorsalgia, unspecified; M79.604 Pain in right leg; M79.605 Pain in left leg; M79.671 Pain in right foot; M79.672 Pain in left foot | CPT/HCPCS: 99213 ==

== ENCOUNTER → 2025-04-08 10:35 | Outpatient (BNVA) | payer MEDICAID, SELFPAY | PROVIDERS: PCP Nurse Practitioner Family; Visit Provider Nurse Practitioner Family | DX: E11.9 Type 2 diabetes mellitus without complications (principal); Z12.4 Encounter for screening for malignant neoplasm of cervix | CPT/HCPCS: 80053; 82962; 83036; 88175 ==

== ENCOUNTER 2025-04-16 10:07 | Outpatient (CLI) | payer MEDICAID, SELFPAY ==
--- NOTE | 2025-04-16 10:20 | MM_ITS ---
WS: [id number] BILATERAL 3D TOMOSYNTHESIS DIGITAL SCREENING MAMMOGRAPHY WITH CAD CLINICAL INFORMATION: Z12.39 - Encounter for other screening for malignant neop... HISTORY: Screening mammogram. No current complaints. COMPARISON: Baseline TECHNIQUE: Bilateral CC and MLO views. FINDINGS: The breasts are composed of heterogeneous fibroglandular density tissue, which can limit the detection of small underlying mass lesions. No suspicious mass, asymmetry, calcifications, or architectural distortion. No evidence of malignancy. MM/MM [facility] tomosynthesis [id number] IMPRESSION: DENSITY: The breasts are heterogeneously dense, which may obscure small masses. BI-RADS: 1 - Negative FOLLOW UP: 1 Year Follow-up Recommend return to annual screening mammography.
== END 2025-04-16 10:08 | disposition home or self-care (01) ==
LOC: RAD 10:11
PROVIDERS: PCP Nurse Practitioner Family; Visit Provider Nurse Practitioner Family
DX: Z12.31 Encounter for screening mammogram for malignant neoplasm of breast (principal); R92.333 Mammographic heterogeneous density, bilateral breasts
CPT/HCPCS: 77063; 77067